=== PATIENT | female | born 1970 | race Two or more races ===

== ENCOUNTER 2020-02-03 11:08 | Outpatient (REF) | payer OTHER, SELFPAY | END 2020-02-03 11:09 | disposition home or self-care (01) | LOC: HO.LAB 11:08 | PROVIDERS: Visit Provider Internal Medicine | DX: Z20.828 Contact with and (suspected) exposure to other viral communicable diseases (principal) | CPT/HCPCS: 87635 ==

== ENCOUNTER 2020-02-06 12:09 | Emergency (ER) | payer OTHER, SELFPAY ==
[2020-02-06 12:25] VITALS: BP 208/89; PULSE 65; RESP 18; TEMP 36.6; O2SAT 99; BMI 37.8
--- NOTE | 2020-02-06 12:28 | ED_ITS ---
HPI - General Adult General Chief complaint: Headache Stated complaint: high blood pressure Time Seen by Provider: 02/06/20 12:28 Source: patient Mode of arrival: ambulatory Limitations: no limitations History of Present Illness HPI narrative: at dentist today noted to have elevated BPs 200 systolic c/o headache MD complaint: HTN and headache Onset (ago): day(s) (3) Location: head Radiation: non-radiation Severity: moderate Quality: aching, dull and constant Pain Consistency: constant Relieving factors: none Exacerbating factors: movement (bending forehead) Associated symptoms: other (nasal congestion) Treatments prior to arrival: none Related Data Previous Rx's Medication Instructions Recorded cyclobenzaprine 10 mg PO TID PRN #14 tab 02/06/20 Allergies Allergy/AdvReac Type Severity Reaction Status Date / Time No Known Allergies Allergy Verified 02/06/20 12:31 [No Known Allergies*] Review of Systems Review of Systems: Constitutional : No Fever, No Chills, No Fatigue ENT/Mouth : No sore throat, No Rhinorrhea Eyes: No Eye Pain, No Swelling, No Redness Cardiovascular : No Chest Pain, No SOB, No Dyspnea on Exertion Respiratory : No Cough, No Sputum Gastrointestinal : No Nausea, No Vomiting, No Diarrhea, No abdominal Pain Genitourinary : No Dysuria, No Urinary Frequency, No Hematuria, Musculoskeletal : No joint pain, No Myalgias, No Joint Swelling Skin : No Skin Lesions, No rash Neuro : No Weakness, No Numbness, No Dizziness, positive Headache Psych : No Anxiety/Panic, No Depression All other systems reviewed and are negative [facility] Past Medical History Medical History HTN (hypertension) HTN (hypertension) Social History Social History Alcohol intake: current Alcohol intake frequency: a few times a month Smoking Status: Never smoker Smoked in Last 30 Days: No Use of substances other than those prescribed or required for medical reasons: No Advance Directives: No Advance Directives Information Provided: No Physical Exam Vital Signs: Vital Signs: Vital Signs Temp Pulse Resp BP Pulse Ox 02/06/20 12:25 98 F 65 18 208/89 H 99 Body Mass Index 37.8 Appearance: Alert. Oriented X3. No acute distress. Eyes: Pupils equal, round and reactive to light. ENT: Pharynx normal. no sinus ttp Neck: Normal inspection. Neck supple. no meningeal signs CVS: Normal heart rate and rhythm. Pulses normal. Respiratory: No respiratory distress. Breath sounds normal. Abdomen: Soft and nontender. Skin: Skin warm and dry. Normal skin color. Normal skin turgor. Extremities: No lower extremity edema. No calf ttp Neuro: Oriented X 3. No motor deficit. No sensory deficit. Course Course Course Narrative: BP down to 160s and 150 is her baseline, at this time stable for DC feels much better Medical Decision Making MDM Narrative Medical decision making narrative: 49 yo female not toxic no AC therapy here with BPs 200/80s compliant with losartan no new changes has some nasal congestion, gradual onset, no neuro deficits, no fevers doubt SAH/[employer] DES[employer] infection, at this time will obtain basic labs and treat headache dispo per results and findings Lab Data Result diagrams: 02/06/20 12:46 02/06/20 12:46 Labs: Lab Results 02/06/20 02/06/20 Range/Units 12:46 12:46 WBC 5.1 (4.8-10.8) X10*3/uL RBC 3.93 L (4.20-5.50) X10*6/uL Hgb 11.7 L (12.0-16.0) g/dl Hct 34.8 L (37-47) % MCV 88.5 (80-98) fL MCH 29.8 (27.0-33.0) pg MCHC 33.6 (31.0-35.0) g/dl RDW 12.3 (11.0-16.0) % Plt Count 208 (160-400) X10*3/uL MPV 10.3 (9.4-12.3) fL Immature Gran % (Auto) 0.2 (0.0-0.4) % Neut % (Auto) 61.5 (45-73) % Lymph % (Auto) 30.4 (20-40) % Crosby % (Auto) 5.7 (2-11) % Eos % (Auto) 1.6 (0-4) % Baso % (Auto) 0.6 (0-2) % Lymph # (Auto) 1.5 (1.2-4.9) X10*3/uL Crosby # (Auto) 0.3 (0.1-1.2) X10*3/uL Eos # (Auto) 0.1 (0.0-0.4) X10*3/uL Baso # (Auto) 0.0 (0.0-0.2) X10*3/uL Abs Immat Gran (auto) 0.01 (0.00-0.03) X10*3/uL Absolute Neuts (auto) 3.1 (2.0-8.3) X10*3/uL Absolute Nucleated RBC 0.000 (0.0-0.012) X10*3/uL Nucleated RBC % (auto) 0.0 (0.0-0.2) /100WBC Sodium 139 (135-145) mmol/L Potassium 3.6 (3.3-5.1) mmol/l Chloride 104 (96-108) mmol/L Carbon Dioxide 26 (22-29) mmol/L Anion Gap 13 (12-20) BUN 16 (9-16) mg/dL Creatinine 0.90 (0.5-1.4) mg/dL Estim Creat Clear Calc 85.0 Estimated GFR > 60 Random Glucose 167 H (60-115) mg/dL Calcium 9.0 (8.4-10.2) mg/dL Discharge Plan Discharge Clinical Impression: Tension headache, HTN (hypertension) Patient Disposition: Home, Self-Care Instructions: Acute Headache (ED), Chronic Hypertension (ED) Additional Instructions: check your blood pressure for the next 2 days if high again please be evaluated Prescriptions: New cyclobenzaprine 10 mg tablet 10 mg PO TID PRN (Reason: muscle spasm) Qty: 14 RF: 0 Referrals: Rush Guerrero MD [Primary Care Provider] - 2 days (2 days for repeat BP check) Stand Alone Forms: Work/School Release
[2020-02-06] MEDS: Cyclobenzaprine HCl 10 MG TABLET PO (12:36)
[2020-02-06] MEDS: HYDROcodone Bit/Acetam 5/325 TABLET 1 TAB PO (12:36)
[2020-02-06 12:52] LABS: MANUAL DIFF FLAG NO
[2020-02-06 12:53] LABS: Basophils Percent Auto 0.6 % (0-2); Eosinophils Absolute Auto 0.1 X10*3/uL (0.0-0.4); Eosinophils Percent Auto 1.6 % (0-4); Hematocrit 34.8 % (37-47); Hemoglobin 11.7 g/dl (12.0-16.0); Imm Gran Abs Auto 0.01 X10*3/uL (0.00-0.03); Imm Gran Pct Auto 0.2 % (0.0-0.4); Lymphocytes Absolute Auto 1.5 X10*3/uL (1.2-4.9); Lymphocytes Percent Auto 30.4 % (20-40); Mean Corpuscular HGB Conc 33.6 g/dl (31.0-35.0); Mean Corpuscular Hemoglobin 29.8 pg (27.0-33.0); Mean Corpuscular Volume 88.5 fL (80-98); Mean Platelet Volume 10.3 fL (9.4-12.3); Monocytes Absolute Auto 0.3 X10*3/uL (0.1-1.2); Monocytes Percent Auto 5.7 % (2-11); Neutrophils Absolute Auto 3.1 X10*3/uL (2.0-8.3); Neutrophils Percent Auto 61.5 % (45-73); Platelet Count 208 X10*3/uL (160-400); Red Blood Count 3.93 X10*6/uL (4.20-5.50); Red Cell Distribution Width 12.3 % (11.0-16.0); White Blood Count 5.1 X10*3/uL (4.8-10.8)
[2020-02-06 13:19] LABS: Anion Gap 13 (12-20); Blood Urea Nitrogen 16 mg/dL (9-16); Carbon Dioxide 26 mmol/L (22-29); Chloride 104 mmol/L (96-108); Estimated Glomerular Filt Rate > 60; Glucose Random 167 mg/dL (60-115); Potassium 3.6 mmol/l (3.3-5.1); Sodium 139 mmol/L (135-145)
== END 2020-02-06 14:00 | disposition home or self-care (01) ==
PROVIDERS: Emergency Provider Emergency Medicine; PCP Internal Medicine
DX: G44.209 Tension-type headache, unspecified, not intractable (principal); I10 Essential (primary) hypertension; Z79.899 Other long term (current) drug therapy
CPT/HCPCS: 36415; 80048; 85025; 99283

== ENCOUNTER 2020-02-06 15:47 | Outpatient (REF) | payer OTHER, SELFPAY ==
[2020-02-06 16:27] LABS: MANUAL DIFF FLAG NO
[2020-02-06 16:32] LABS: Basophils Percent Auto 0.7 % (0-2); Eosinophils Absolute Auto 0.1 X10*3/uL (0.0-0.4); Eosinophils Percent Auto 1.8 % (0-4); Hematocrit 36.1 % (37-47); Hemoglobin 12.1 g/dl (12.0-16.0); Imm Gran Abs Auto 0.01 X10*3/uL (0.00-0.03); Imm Gran Pct Auto 0.2 % (0.0-0.4); Lymphocytes Absolute Auto 1.7 X10*3/uL (1.2-4.9); Lymphocytes Percent Auto 29.8 % (20-40); Mean Corpuscular HGB Conc 33.5 g/dl (31.0-35.0); Mean Corpuscular Volume 89.4 fL (80-98); Mean Platelet Volume 11.1 fL (9.4-12.3); Monocytes Absolute Auto 0.4 X10*3/uL (0.1-1.2); Monocytes Percent Auto 7.9 % (2-11); Neutrophils Absolute Auto 3.3 X10*3/uL (2.0-8.3); Neutrophils Percent Auto 59.6 % (45-73); Platelet Count 225 X10*3/uL (160-400); Red Blood Count 4.04 X10*6/uL (4.20-5.50); Red Cell Distribution Width 12.5 % (11.0-16.0); White Blood Count 5.6 X10*3/uL (4.8-10.8)
[2020-02-06 17:13] LABS: Anion Gap 11 (12-20); Blood Urea Nitrogen 13 mg/dL (9-16); C Reactive Protein 1.11 mg/dL (< or = 0.50); Calcium 8.8 mg/dL (8.4-10.2); Carbon Dioxide 29 mmol/L (22-29); Chloride 104 mmol/L (96-108); Estimated Glomerular Filt Rate > 60; Glucose Random 70 mg/dL (60-115); Sodium 140 mmol/L (135-145)
[2020-02-06 17:36] LABS: Vitamin D 25-OH Total 10.2 ng/mL (>30)
== END 2020-02-06 15:48 | disposition home or self-care (01) ==
LOC: HO.LAB 15:47
PROVIDERS: PCP Internal Medicine; Visit Provider Internal Medicine
DX: R51.9 Headache, unspecified (principal); I10 Essential (primary) hypertension; E55.9 Vitamin D deficiency, unspecified; D64.9 Anemia, unspecified
CPT/HCPCS: 36415; 80048; 82306; 85025; 86140

== ENCOUNTER 2020-02-20 10:26 | Outpatient (REF) | payer OTHER, SELFPAY ==
--- NOTE | 2020-02-20 10:32 | XR_ITS ---
EXAMINATION: XR SHOULDER, LEFT CLINICAL INFORMATION: Pain COMPARISON: None TECHNIQUE: 2 views of the left shoulder. FINDINGS: The bones and soft tissues are normal. No fracture. Glenohumeral and acromioclavicular alignment is anatomic with normal joint space. No abnormal soft tissue calcifications. XR/XR shoulder LT min 2V IMPRESSION: Normal left shoulder.
== END 2020-02-20 10:27 | disposition home or self-care (01) ==
LOC: HO.XRAY 10:26
PROVIDERS: Visit Provider Internal Medicine
DX: M25.512 Pain in left shoulder (principal)
CPT/HCPCS: 73030

== ENCOUNTER 2020-05-28 10:41 | Outpatient (REF) | payer OTHER, SELFPAY ==
[2020-05-28 13:52] LABS: MANUAL DIFF FLAG NO
[2020-05-28 13:59] LABS: Basophils Percent Auto 0.7 % (0-2); Eosinophils Absolute Auto 0.1 X10*3/uL (0.0-0.4); Eosinophils Percent Auto 1.7 % (0-4); Hematocrit 36.6 % (37-47); Hemoglobin 12.4 g/dl (12.0-16.0); Imm Gran Abs Auto 0.01 X10*3/uL (0.00-0.03); Imm Gran Pct Auto 0.2 % (0.0-0.4); Lymphocytes Absolute Auto 1.6 X10*3/uL (1.2-4.9); Lymphocytes Percent Auto 30.1 % (20-40); Mean Corpuscular HGB Conc 33.9 g/dl (31.0-35.0); Mean Corpuscular Hemoglobin 30.1 pg (27.0-33.0); Mean Corpuscular Volume 88.8 fL (80-98); Monocytes Absolute Auto 0.4 X10*3/uL (0.1-1.2); Monocytes Percent Auto 7.9 % (2-11); Neutrophils Absolute Auto 3.2 X10*3/uL (2.0-8.3); Neutrophils Percent Auto 59.4 % (45-73); Platelet Count 249 X10*3/uL (160-400); Red Blood Count 4.12 X10*6/uL (4.20-5.50); Red Cell Distribution Width 12.2 % (11.0-16.0); White Blood Count 5.4 X10*3/uL (4.8-10.8)
[2020-05-28 14:40] LABS: Anion Gap 12 (12-20); Blood Urea Nitrogen 8 mg/dL (9-16); Calcium 8.9 mg/dL (8.4-10.2); Carbon Dioxide 28 mmol/L (22-29); Chloride 106 mmol/L (96-108); Estimated Glomerular Filt Rate > 60; Glucose Fasting 116 mg/dL (60-99); Potassium 4.2 mmol/L (3.3-5.1); Sodium 142 mmol/L (135-145)
[2020-05-28 14:50] LABS: Vitamin D 25-OH Total 38.4 ng/mL (>30)
== END 2020-05-28 10:42 | disposition home or self-care (01) ==
LOC: HO.10HDL 10:41
PROVIDERS: Visit Provider Internal Medicine
DX: E55.9 Vitamin D deficiency, unspecified (principal); D64.9 Anemia, unspecified; I10 Essential (primary) hypertension
CPT/HCPCS: 36415; 80048; 82306; 85025

== ENCOUNTER 2020-06-28 12:18 | Outpatient (REF) | payer OTHER, SELFPAY ==
--- NOTE | ~2020-06-28 | MM_ITS ---
EXAMINATION: MM DIAGNOSTIC DIGITAL BREAST TOMOSYNTHESIS, BILATERAL CLINICAL INFORMATION: Right breast six-month follow up calcifications and left breast yearly screening. The lifetime risk of breast cancer based on the Tyrer-Cuzick Model is 9.2%. COMPARISON: Mammography: 12/09/2019 and studies dating back to 07/18/2013. TECHNIQUE: Digital breast tomosynthesis is performed in both the craniocaudal and mediolateral oblique views along with computer-aided detection (CAD). Synthesized 2D images are generated from the tomosynthesis. Spot magnification views of the right breast in craniocaudal and 90 degree mediolateral views performed. FINDINGS: There are scattered areas of fibroglandular density (ACR BI-RADS breast composition Category b). Skin calcifications are present within the right breast with no suspicious grouping of calcifications or abnormal dominant mass seen in either breast. No architectural distortion. Results are provided to the patient at time of visit by the technologist. MM/MM tomosynthesis diagnostic BI IMPRESSION: There are no significant changes from prior study. The right breast calcifications are seen to represent skin calcifications. ASSESSMENT: BI-RADS 2: Benign. RECOMMENDATION: Routine annual mammography screening due in 12 months. This patient's information was entered into a reminder system with a target due date for their next mammogram.
== END 2020-06-28 12:19 | disposition home or self-care (01) ==
LOC: HO.MAMMO 12:18
PROVIDERS: PCP Internal Medicine; Visit Provider Internal Medicine
DX: R92.1 Mammographic calcification found on diagnostic imaging of breast (principal)
CPT/HCPCS: 77062; 77066

== ENCOUNTER 2020-08-02 08:13 | Outpatient (REF) | payer OTHER, SELFPAY ==
[2020-08-02 08:44] LABS: COVID-19 Test Negative (Negative)
== END 2020-08-02 08:14 | disposition home or self-care (01) ==
LOC: HO.LAB 08:13
PROVIDERS: Visit Provider Internal Medicine
DX: Z20.822 Contact with and (suspected) exposure to COVID-19 (principal)
CPT/HCPCS: 36415; 87635; C9803

== ENCOUNTER 2020-12-08 07:55 | Outpatient (REF) | payer OTHER, SELFPAY ==
[2020-12-08 09:20] LABS: Estimated Average Glucose 91 mg/dL; Hemoglobin A1c % 4.8 %
[2020-12-08 09:22] LABS: Anion Gap 11 (12-20); Blood Urea Nitrogen 13 mg/dL (9-16); Calcium 9.8 mg/dL (8.4-10.2); Carbon Dioxide 27 mmol/L (22-29); Chloride 105 mmol/L (96-108); Estimated Glomerular Filt Rate 60; Glucose Random 93 mg/dL (60-115); Sodium 139 mmol/L (135-145)
== END 2020-12-08 07:56 | disposition home or self-care (01) ==
LOC: HO.LAB 07:55
PROVIDERS: PCP Internal Medicine; Visit Provider Internal Medicine
DX: I10 Essential (primary) hypertension (principal); R73.03 Prediabetes
CPT/HCPCS: 36415; 80048; 83036

== ENCOUNTER 2021-07-05 09:34 | Outpatient (REF) | payer OTHER, SELFPAY ==
--- NOTE | ~2021-07-05 | MM_ITS ---
EXAMINATION: MM SCREENING DIGITAL BREAST TOMOSYNTHESIS, BILATERAL CLINICAL INFORMATION: Screening. Asymptomatic. The lifetime risk of breast cancer based on the Tyrer-Cuzick Model is 11.1%. COMPARISON: Mammography: December 09, 2019 and studies dating back to July 18, 2013 TECHNIQUE: Digital breast tomosynthesis is performed in both the craniocaudal and mediolateral oblique views along with computer-aided detection (CAD). Synthesized 2D images are generated from the tomosynthesis. FINDINGS: There are scattered areas of fibroglandular density (ACR BI-RADS breast composition Category b). There are no significant masses, abnormal calcifications, or other abnormalities. MM/MM tomosynthesis screening BI IMPRESSION: There are no significant changes from prior study. ASSESSMENT: BI-RADS 1: Negative RECOMMENDATION: Routine annual mammography screening. This patient's information was entered into a reminder system with a target due date for their next mammogram.
== END 2021-07-05 09:35 | disposition home or self-care (01) ==
LOC: HO.MAMMO 09:34
PROVIDERS: PCP Internal Medicine; Visit Provider Internal Medicine
DX: Z12.31 Encounter for screening mammogram for malignant neoplasm of breast (principal)
CPT/HCPCS: 77063; 77067

== ENCOUNTER 2021-08-28 13:44 | Outpatient (REF) | payer OTHER, SELFPAY ==
[2021-08-28 14:54] LABS: Influenza A PCR NEGATIVE (Negative); Influenza B PCR NEGATIVE (Negative); Resp Syncy Virus RNA Qual PCR NEGATIVE (Negative); SARS COV2 PCR INHOUSE NEGATIVE (Negative)
== END 2021-08-28 13:45 | disposition home or self-care (01) ==
LOC: HO.LNP 13:44
PROVIDERS: Visit Provider Internal Medicine
DX: Z20.822 Contact with and (suspected) exposure to COVID-19 (principal); R05.9 Cough, unspecified
CPT/HCPCS: 0241U

== ENCOUNTER 2021-08-29 10:31 | Outpatient (REF) | payer OTHER, SELFPAY ==
[2021-08-29 10:55] LABS: MANUAL DIFF FLAG NO
[2021-08-29 12:06] LABS: Basophils Percent Auto 0.9 % (0-2); Eosinophils Absolute Auto 0.1 X10*3/uL (0.0-0.4); Eosinophils Percent Auto 2.8 % (0-4); Hemoglobin 8.2 g/dl (12.0-16.0); Imm Gran Abs Auto 0.01 X10*3/uL (0.00-0.03); Imm Gran Pct Auto 0.2 % (0.0-0.4); Lymphocytes Absolute Auto 1.2 X10*3/uL (1.2-4.9); Lymphocytes Percent Auto 26.4 % (20-40); Mean Corpuscular HGB Conc 30.4 g/dl (31.0-35.0); Mean Corpuscular Hemoglobin 23.9 pg (27.0-33.0); Mean Corpuscular Volume 78.7 fL (80.0-98.0); Mean Platelet Volume 11.6 fL (9.4-12.3); Monocytes Absolute Auto 0.6 X10*3/uL (0.1-1.2); Monocytes Percent Auto 12.9 % (2-11); Neutrophils Absolute Auto 2.6 x10*3/uL (2.0-8.3); Neutrophils Percent Auto 56.8 % (45-73); Platelet Count 276 X10*3/uL (160-400); Red Blood Count 3.43 X10*6/uL (4.20-5.50); Red Cell Distribution Width 13.5 % (11.0-16.0); White Blood Count 4.6 X10*3/uL (4.8-10.8)
[2021-08-29 12:36] LABS: Alanine Aminotransferase 12 U/L (0-31); Albumin Level 3.8 g/dL (3.5-5.0); Alkaline Phosphatase 124 U/L (39-117); Anion Gap 12 (12-20); Aspartate Amino Transferase 14 U/L (5-31); Bilirubin Total 0.2 mg/dL (0.0-1.0); Blood Urea Nitrogen 11 mg/dL (9-16); C Reactive Protein 1.71 mg/dL (< or = 0.50); Carbon Dioxide 24 mmol/L (22-29); Chloride 107 mmol/L (96-108); Estimated Glomerular Filt Rate > 60; Glucose Random 110 mg/dL (60-115); Potassium 4.2 mmol/L (3.3-5.1); Sodium 139 mmol/L (135-145); Total Protein 6.6 g/dL (6.5-8.0)
== END 2021-08-29 10:32 | disposition home or self-care (01) ==
LOC: HO.LAB 10:31
PROVIDERS: PCP Internal Medicine; Visit Provider Internal Medicine
DX: I10 Essential (primary) hypertension (principal); E55.9 Vitamin D deficiency, unspecified
CPT/HCPCS: 36415; 80053; 85025; 86140

== ENCOUNTER 2021-09-25 10:28 | Outpatient (REF) | payer OTHER, SELFPAY ==
[2021-09-25 15:10] LABS: CT PCR NOT DETECTED (Not Detect.); NG PCR NOT DETECTED (Not Detect.)
[2021-09-26 12:29] LABS: BV Int Neg Control Negative (Negative); BV Int Pos Control Positive (Positive)
[2021-10-03 12:46] LABS: HPV mRNA E6/E7 rflx Not Detected (Not Detected)
== END 2021-09-25 10:29 | disposition home or self-care (01) ==
LOC: HO.LAB 10:28
PROVIDERS: Visit Provider Advanced Practice Midwife
DX: Z01.419 Encounter for gynecological examination (general) (routine) without abnormal findings (principal); Z11.51 Encounter for screening for human papillomavirus (HPV); Z11.3 Encounter for screening for infections with a predominantly sexual mode of transmission; R10.2 Pelvic and perineal pain; R14.0 Abdominal distension (gaseous)
CPT/HCPCS: 87480; 87491; 87510; 87591; 87624; 87660; 88142

== ENCOUNTER 2021-10-30 14:27 | Outpatient (REF) | payer OTHER, SELFPAY ==
--- NOTE | ~2021-10-30 | US_ITS ---
EXAMINATION: US PELVIS CLINICAL INFORMATION: Pelvic pain with abdominal distention. COMPARISON: Ultrasound of the pelvis 02/02/2017. TECHNIQUE: Ultrasound of the pelvis is performed using both transabdominal and transvaginal transducers along with Doppler. Transvaginal imaging is performed due to inadequate visualization transabdominally. FINDINGS: UTERUS: The uterus is anteverted, anteflexed and measures 14.1 cm in length, 7.8 cm in AP and 5.3 cm in transverse dimension. The double wall endometrial thickness is 1.6 cm. The uterus is smooth in contour and has normal myometrial echogenicity. No visible fibroid. There are small anechoic nabothian cysts seen in the cervix. ADNEXA: There is a large cystic and solid mass in the upper pelvis extending to the upper abdomen likely originating from the right adnexa and measures at least 20 cm long. There is normal flow seen to the right ovary, however the right ovary is not distinctly visualized. The left ovary is suboptimally visualized and measures approximately 2.7 x 2.3 x 1.7 cm and volume 5.5 mL. It appears unremarkable. Previously left ovary measures 1.8 x 1.4 x 1.3 cm and volume 1.6 mL. There is a large amount of free fluid with echogenic debris within. US/US pelvic and transvaginal IMPRESSION: Large complex mass in the pelvis extending to the upper abdomen likely originating from the right ovary. The right ovary is not visualized, however there is Doppler flow seen and appears to be the right ovary. The uterus is unremarkable. There are small nabothian cysts seen in the cervix. The left ovary is visualized but not certain and appears unremarkable. There is a large amount of free fluid with echogenic debris within. Results were called to MARGO Johnson at 3:[address] of the abdomen and pelvis with contrast was advised.
[2021-10-30 14:52] LABS: Hematocrit 32.3 % (37.0-47.0); Hemoglobin 9.9 g/dl (12.0-16.0); Mean Corpuscular HGB Conc 30.7 g/dl (31.0-35.0); Mean Corpuscular Volume 78.2 fL (80.0-98.0); Platelet Count 410 X10*3/uL (160-400); Red Blood Count 4.13 X10*6/uL (4.20-5.50); Red Cell Distribution Width 14.6 % (11.0-16.0); White Blood Count 6.7 X10*3/uL (4.8-10.8)
[2021-10-30 15:33] LABS: Thyroid Stimulating Hormone 2.44 uIU/mL (0.32-4.0)
[2021-11-01 09:01] LABS: Follicle Stimulating Hormone 10.5 mIU/mL
== END 2021-10-30 14:28 | disposition home or self-care (01) ==
LOC: HO.US 14:27
PROVIDERS: PCP Internal Medicine; Visit Provider Advanced Practice Midwife
DX: R10.2 Pelvic and perineal pain (principal); N92.1 Excessive and frequent menstruation with irregular cycle; R14.0 Abdominal distension (gaseous)
CPT/HCPCS: 36415; 76830; 76856; 83001; 84443; 85027

== ENCOUNTER 2021-11-01 12:22 | Outpatient (REF) | payer OTHER, SELFPAY ==
[2021-11-06 12:12] LABS: CA-125 1975 U/mL (<35)
== END 2021-11-01 12:23 | disposition home or self-care (01) ==
LOC: HO.LAB 12:22
PROVIDERS: PCP Internal Medicine; Visit Provider Advanced Practice Midwife
DX: R19.00 Intra-abdominal and pelvic swelling, mass and lump, unspecified site (principal); N88.8 Other specified noninflammatory disorders of cervix uteri; Z71.2 Person consulting for explanation of examination or test findings
CPT/HCPCS: 36415; 86304; 99212

== ENCOUNTER 2021-11-06 14:41 | Outpatient (REF) | payer OTHER, SELFPAY ==
[2021-11-06 16:41] LABS: Carcinoembryonic Antigen < 0.50 ng/mL
== END 2021-11-06 14:42 | disposition home or self-care (01) ==
LOC: HO.LAB 14:41
PROVIDERS: PCP Internal Medicine; Visit Provider Advanced Practice Midwife
DX: R19.00 Intra-abdominal and pelvic swelling, mass and lump, unspecified site (principal)
CPT/HCPCS: 36415; 82378

== ENCOUNTER 2021-11-07 13:10 | Outpatient (REF) | payer OTHER, SELFPAY ==
[2021-11-07 14:26] LABS: Blood Urea Nitrogen 12 mg/dL (9-16); Estimated Glomerular Filt Rate 57
== END 2021-11-07 13:11 | disposition home or self-care (01) ==
LOC: HO.LAB 13:10
PROVIDERS: PCP Internal Medicine; Visit Provider Advanced Practice Midwife
DX: O26.899 Other specified pregnancy related conditions, unspecified trimester (principal); R51.9 Headache, unspecified
CPT/HCPCS: 36415; 82565; 84520

== ENCOUNTER 2021-11-08 05:22 | Outpatient (REF) | payer OTHER, SELFPAY ==
--- NOTE | ~2021-11-08 | CT_ITS ---
EXAMINATION: CT ABDOMEN AND PELVIS WITH CONTRAST CLINICAL INFORMATION: Intra-abdominal and pelvic swelling, mass, lung COMPARISON: None TECHNIQUE: Multidetector volumetric images were obtained from the superior aspect of the liver through the pubic symphysis following administration 85 mL of Omnipaque 350 intravenous contrast. Sagittal and coronal reformatted images were obtained on the technologist's workstation. Oral contrast: No This CT examination was performed using dose optimization techniques as appropriate, variously including the following: *Automated exposure control *Adjustment of mA and/or kV according to patient size (this includes techniques or standardized protocols for targeted exams where dose is matched to indication/reason for exam; i.e. extremities or head) *Use of iterative reconstruction technique DLP: 603 mGy-cm FINDINGS: LUNG BASES: Epicardial soft tissue nodules the largest measuring 1.3 x 1.3 cm in image 6/94. Normal heart size. LIVER, GALLBLADDER, AND BILIARY TREE: The liver is normal in size, shape, and attenuation. No focal hepatic lesion or biliary ductal dilatation is present. The gallbladder is unremarkable with no evidence of radiopaque gallstones, gallbladder wall thickening, or obvious pericholecystic inflammatory changes. PANCREAS: Unremarkable. SPLEEN: Unremarkable. ADRENAL GLANDS: Unremarkable. KIDNEYS AND URETERS: The kidneys are normal in size, shape, and attenuation. No hydronephrosis, hydroureter, or calculi seen. No perinephric stranding. BLADDER: Unremarkable. GASTROINTESTINAL TRACT: The small and large bowel are unremarkable. The appendix is unremarkable. ABDOMINAL WALL: No significant hernia is appreciated. LYMPH NODES: There is retroperitoneal lymphadenopathy below the level of the renal veins. The largest is a 3.2 x 1.9 cm aortocaval lymph node in image 35/94. Inferiorly there is a 1.9 x 1.6 cm aortocaval lymph node in image 44. There is right external iliac lymphadenopathy in image 73 measuring 1.8 x 1.6 cm. There is left pelvic sidewall lymphadenopathy measuring 1.6 x 1.2 cm. VASCULAR: Unremarkable. PELVIC VISCERA: There is a complex cystic and solid right ovarian mass, contiguous with the right ovarian vessels measuring 20 x 13 cm transaxial by 15 cm craniocaudal. Left ovary possibly seen in image 65/94, normal in size. There is a moderate volume of ascites with peritoneal and omental soft tissue nodules consistent with peritoneal carcinomatosis. The largest confluent area of abnormal soft tissue is in the left lateral abdomen image 43/94 measuring 8.1 x 3.6 cm. Dependent soft tissue nodularity in the pelvic cul-de-sac, for example measuring 3.3 and 3.0 cm in greatest dimension on image 73/94 are likely peritoneal soft tissue implants as well. OSSEOUS STRUCTURES: Lower lumbar facet arthropathy. No acute or suspicious osseous abnormality. CT/CT abdomen pelvis w con IMPRESSION: Findings most consistent with metastatic ovarian cancer including a complex cystic and solid 20 cm right ovarian mass, moderate volume of ascites, peritoneal carcinomatosis, and metastatic lymphadenopathy. Recommend referral to gynecologic oncology. The report will be called to the ordering clinician by a [facility] Manager.
[2021-11-08] MEDS: iohexoL 350 MG/ML 100 ML INFUS..BTL 85 ML IV (08:05)
[2021-11-08] MEDS: Barium Sulfate Oral (Vanilla) 450 ML ORAL.SUSP 900 ML PO (08:07)
== END 2021-11-08 05:23 | disposition home or self-care (01) ==
LOC: HO.CT 05:22
PROVIDERS: Visit Provider Advanced Practice Midwife
DX: R19.00 Intra-abdominal and pelvic swelling, mass and lump, unspecified site (principal)
CPT/HCPCS: 74177; Q9967

== ENCOUNTER 2022-01-17 06:45 | Outpatient (REF) | payer OTHER, SELFPAY ==
[2022-01-17 06:56] LABS: MANUAL DIFF FLAG NO
[2022-01-17 07:53] LABS: Basophils Percent Auto 0.7 % (0-2); Eosinophils Absolute Auto 0.1 X10*3/uL (0.0-0.4); Eosinophils Percent Auto 2.4 % (0-4); Hematocrit 29.9 % (37.0-47.0); Hemoglobin 9.2 g/dl (12.0-16.0); Imm Gran Abs Auto 0.01 X10*3/uL (0.00-0.03); Imm Gran Pct Auto 0.2 % (0.0-0.4); Lymphocytes Absolute Auto 1.6 X10*3/uL (1.2-4.9); Lymphocytes Percent Auto 37.5 % (20-40); Mean Corpuscular HGB Conc 30.8 g/dl (31.0-35.0); Mean Corpuscular Hemoglobin 24.7 pg (27.0-33.0); Mean Corpuscular Volume 80.2 fL (80.0-98.0); Monocytes Absolute Auto 0.2 X10*3/uL (0.1-1.2); Monocytes Percent Auto 3.8 % (2-11); Neutrophils Absolute Auto 2.3 x10*3/uL (2.0-8.3); Neutrophils Percent Auto 55.4 % (45-73); Platelet Count 156 X10*3/uL (160-400); Red Blood Count 3.73 X10*6/uL (4.20-5.50); Red Cell Distribution Width 17.6 % (11.0-16.0); White Blood Count 4.2 X10*3/uL (4.8-10.8)
[2022-01-17 08:06] LABS: Anion Gap 15 (12-20); Blood Urea Nitrogen 19 mg/dL (9-16); Calcium 9.9 mg/dL (8.4-10.2); Carbon Dioxide 26 mmol/L (22-29); Chloride 101 mmol/L (96-108); Estimated Glomerular Filt Rate > 60; Glucose Random 101 mg/dL (60-115); Iron 43 mcg/dL (30-160); Percent Iron Saturation 12 % (15-50); Potassium 4.4 mmol/L (3.3-5.1); Sodium 138 mmol/L (135-145); Total Iron Binding Capacity 358 mcg/dL (228-428); Unsaturated Iron Binding 315 ug/dL
== END 2022-01-17 06:46 | disposition home or self-care (01) ==
LOC: HO.LAB 06:45
PROVIDERS: PCP Internal Medicine; Visit Provider Internal Medicine
DX: I10 Essential (primary) hypertension (principal); D64.9 Anemia, unspecified
CPT/HCPCS: 36415; 80048; 83540; 85025

== ENCOUNTER 2022-07-10 12:25 | Outpatient (REF) | payer OTHER, SELFPAY ==
--- NOTE | ~2022-07-10 | MM_ITS ---
EXAMINATION: MM SCREENING DIGITAL BREAST TOMOSYNTHESIS, BILATERAL CLINICAL INFORMATION: Screening. Asymptomatic. The lifetime risk of breast cancer based on the Tyrer-Cuzick Model is 10%. COMPARISON: Mammography: July 05, 2021 and studies dating back to February 25, 2017 TECHNIQUE: Digital breast tomosynthesis is performed in both the craniocaudal and mediolateral oblique views along with computer-aided detection (CAD). Synthesized 2D images are generated from the tomosynthesis. FINDINGS: There are scattered areas of fibroglandular density (ACR BI-RADS breast composition Category b). There are no significant masses, abnormal calcifications, or other abnormalities. MM/MM tomosynthesis screening BI IMPRESSION: No significant changes from prior exam. ASSESSMENT: BI-RADS 1: Negative RECOMMENDATION: Routine annual mammography screening. This patient's information was entered into a reminder system with a target due date for their next mammogram.
== END 2022-07-10 12:26 | disposition home or self-care (01) ==
LOC: HO.MAMMO 12:25
PROVIDERS: PCP Internal Medicine; Visit Provider Internal Medicine
DX: Z12.31 Encounter for screening mammogram for malignant neoplasm of breast (principal)
CPT/HCPCS: 77063; 77067

== ENCOUNTER 2023-04-28 16:06 | Outpatient (REF) | payer OTHER, SELFPAY ==
[2023-04-28 16:19] LABS: MANUAL DIFF FLAG NO
[2023-04-28 17:35] LABS: Basophils Percent Auto 0.6 % (0-2); Eosinophils Absolute Auto 0.1 X10*3/uL (0.0-0.4); Hematocrit 34.8 % (37.0-47.0); Hemoglobin 11.6 g/dl (12.0-16.0); Imm Gran Abs Auto 0.01 X10*3/uL (0.00-0.03); Imm Gran Pct Auto 0.2 % (0.0-0.4); Lymphocytes Absolute Auto 1.5 X10*3/uL (1.2-4.9); Lymphocytes Percent Auto 29.4 % (20-40); Mean Corpuscular HGB Conc 33.3 g/dl (31.0-35.0); Mean Corpuscular Hemoglobin 31.5 pg (27.0-33.0); Mean Corpuscular Volume 94.6 fL (80.0-98.0); Mean Platelet Volume 10.5 fL (9.4-12.3); Monocytes Absolute Auto 0.4 X10*3/uL (0.1-1.2); Monocytes Percent Auto 7.3 % (2-11); Neutrophils Percent Auto 61.5 % (45-73); Platelet Count 209 X10*3/uL (160-400); Red Blood Count 3.68 X10*6/uL (4.20-5.50); Red Cell Distribution Width 11.7 % (11.0-16.0); White Blood Count 4.9 X10*3/uL (4.8-10.8)
[2023-04-28 18:25] LABS: Alanine Aminotransferase 14 U/L (0-31); Albumin Level 4.2 g/dL (3.5-5.0); Alkaline Phosphatase 99 U/L (39-117); Anion Gap 13 (12-20); Aspartate Amino Transferase 15 U/L (5-31); Bilirubin Total 0.5 mg/dL (0.0-1.0); Blood Urea Nitrogen 17 mg/dL (9-16); Calcium 9.5 mg/dL (8.4-10.2); Carbon Dioxide 27 mmol/L (22-29); Chloride 107 mmol/L (96-108); Cholesterol 186 mg/dL (<200); Estimated Glomerular Filt Rate > 60; Glucose Random 97 mg/dL (60-115); Potassium 4.2 mmol/L (3.3-5.1); Sodium 143 mmol/L (135-145); Total Protein 7.3 g/dL (6.5-8.0)
[2023-04-28 18:39] LABS: Vitamin D 25-OH Total 11.2 ng/mL (>30)
== END 2023-04-28 16:07 | disposition home or self-care (01) ==
LOC: HO.LAB 16:06
PROVIDERS: PCP Internal Medicine; Visit Provider Internal Medicine
DX: I12.9 Hypertensive chronic kidney disease with stage 1 through stage 4 chronic kidney disease, or unspecified chronic kidney disease (principal); N18.9 Chronic kidney disease, unspecified; E55.9 Vitamin D deficiency, unspecified; D64.9 Anemia, unspecified; Z98.890 Other specified postprocedural states
CPT/HCPCS: 36415; 80053; 82306; 82465; 85025

== ENCOUNTER 2023-08-07 08:21 | Outpatient (REF) | payer OTHER, SELFPAY ==
--- NOTE | ~2023-08-07 | MM_ITS ---
EXAMINATION: MM SCREENING DIGITAL BREAST TOMOSYNTHESIS, BILATERAL CLINICAL INFORMATION: Screening. Asymptomatic. COMPARISON: Mammography: This study is compared with prior exams dating back to 2019. TECHNIQUE: Digital breast tomosynthesis is performed in both the craniocaudal and mediolateral oblique views along with computer-aided detection (CAD). Synthesized 2D images are generated from the tomosynthesis. FINDINGS: There are scattered areas of fibroglandular density (ACR BI-RADS breast composition Category b). There are no significant masses, abnormal calcifications, or other abnormalities. Few, bilateral benign calcifications are present. MM/MM tomosynthesis screening BI IMPRESSION: No mammographic evidence of malignancy. ASSESSMENT: BI-RADS BI-RADS 2 - Benign Findings RECOMMENDATION: Routine annual mammography screening. 1 year F/U This examination should not preclude the clinical evaluation of a suspicious palpable abnormality. This patient's information was entered into a reminder system with a target due date for their next mammogram.
== END 2023-08-07 08:22 | disposition home or self-care (01) ==
LOC: HO.MAMMO 08:21
PROVIDERS: PCP Internal Medicine; Visit Provider Internal Medicine
DX: Z12.31 Encounter for screening mammogram for malignant neoplasm of breast (principal)
CPT/HCPCS: 77063; 77067

== ENCOUNTER → 2023-08-07 08:45 | Outpatient (BNV) | payer OTHER, SELFPAY | PROVIDERS: PCP Internal Medicine; Visit Provider Radiology Diagnostic Radiology | DX: Z12.31 Encounter for screening mammogram for malignant neoplasm of breast (principal) | CPT/HCPCS: 77063; 77067 ==

== ENCOUNTER 2024-02-05 11:30 | Outpatient (REF) | payer OTHER, SELFPAY ==
[2024-02-05 11:49] LABS: MANUAL DIFF FLAG NO
[2024-02-05 12:23] LABS: Appearance Urine Clear; Color Urine Yellow; Glucose Urine UA Negative (Negative); Leukocyte Esterase Urine Small (1+) (Negative); Nitrite Urine Negative (Negative); PH 5.5 (5.0-9.0); UMIC TRIGGER UA YES; Urine Blood Negative (Negative); Urine Ketones Negative (Negative); Urine Protein Negative (Neg-Trace)
[2024-02-05 12:29] LABS: Basophils Percent Auto 0.8 % (0-2); Eosinophils Absolute Auto 0.1 X10*3/uL (0.0-0.4); Eosinophils Percent Auto 1.5 % (0-4); Hematocrit 33.9 % (37.0-47.0); Hemoglobin 11.6 g/dl (12.0-16.0); Imm Gran Abs Auto 0.01 X10*3/uL (0.00-0.03); Imm Gran Pct Auto 0.2 % (0.0-0.4); Lymphocytes Absolute Auto 1.5 X10*3/uL (1.2-4.9); Lymphocytes Percent Auto 31.6 % (20-40); Mean Corpuscular HGB Conc 34.2 g/dl (31.0-35.0); Mean Corpuscular Hemoglobin 32.1 pg (27.0-33.0); Mean Corpuscular Volume 93.9 fL (80.0-98.0); Mean Platelet Volume 10.2 fL (9.4-12.3); Monocytes Absolute Auto 0.4 X10*3/uL (0.1-1.2); Monocytes Percent Auto 9.1 % (2-11); Neutrophils Absolute Auto 2.7 x10*3/uL (2.0-8.3); Neutrophils Percent Auto 56.8 % (45-73); Platelet Count 159 X10*3/uL (160-400); Red Blood Count 3.61 X10*6/uL (4.20-5.50); Red Cell Distribution Width 12.8 % (11.0-16.0); White Blood Count 4.8 X10*3/uL (4.8-10.8)
[2024-02-05 12:34] LABS: Bacteria Urine None Seen (None Seen); Hyaline Casts Urine 0-2 /LPF (0-2); RBC Urine 0-2 /HPF (0-2); WBC Urine 0-5 /HPF (0-5)
[2024-02-05 13:29] LABS: Parathyroid Hormone Intact 156.3 pg/mL (8.7-77.1)
[2024-02-05 13:30] LABS: Creatinine Urine 203.59 mg/dL; Microalbum/Creatinine Ratio Ur 17.1 ug/mg cr (<30); Protein/Creatinine Ratio, Ur 0.05 (<0.2); Total Protein Urine Random 10 mg/dL (<12)
[2024-02-05 13:31] LABS: Anion Gap 14 (12-20); Blood Urea Nitrogen 24 mg/dL (9-16); Calcium 9.6 mg/dL (8.4-10.2); Carbon Dioxide 28 mmol/L (22-29); Chloride 102 mmol/L (96-108); Estimated Glomerular Filt Rate 46; Glucose Random 107 mg/dL (60-115); Iron 86 mcg/dL (30-160); Magnesium 2.1 mg/dL (1.6-2.6); Percent Iron Saturation 29 % (15-50); Phosphorus 3.3 mg/dL (2.7-4.5); Potassium 4.3 mmol/L (3.3-5.1); Sodium 140 mmol/L (135-145); Total Iron Binding Capacity 295 mcg/dL (228-428); Unsaturated Iron Binding 209 ug/dL; Uric Acid 9.6 mg/dL (2.4-5.7)
[2024-02-05 13:49] LABS: Ferritin 720 ng/mL (10-250); Vitamin D 25-OH Total 33.7 ng/mL (>30)
[2024-02-10 09:12] LABS: eGFR (Cystatin C) 44 (L)
[2024-02-10 09:13] LABS: Cystatin C 1.47 (H)
== END 2024-02-05 11:31 | disposition home or self-care (01) ==
LOC: HO.LAB 11:30
PROVIDERS: PCP Internal Medicine; Visit Provider Internal Medicine
DX: N18.31 Chronic kidney disease, stage 3a (principal)
CPT/HCPCS: 36415; 80048; 81001; 82043; 82306; 82570; 82610; 82728; 83540; 83735; 83970; 84100; 84156; 84550; 85025

== ENCOUNTER 2024-08-25 11:39 | Outpatient (REF) | payer OTHER, SELFPAY ==
--- OUTSIDE RECORDS SUMMARY | 2024-08-25 13:11 | XMS_ITS | Clinical Summary ---
Author Organization [facility] Address [address] [place] [address] Phone Care Team Providers Care Hand Molder Meat Name Role Phone Rush Guerrero MD Primary Care Provider [phone] Allergies No known active allergies Medications amLODIPine (NORVASC) 10 MG tablet Take 10 mg by mouth 09/07/2023 Active prochlorperazin e (COMPAZINE) 10 MG tablet Take 10 mg by mouth if needed for nausea 05/28/2023 Active spironolactone (ALDACTONE) 25 MG tablet Take 25 mg by mouth in the morning and 25 mg in the evening. 11/16/2023 Active carvedilol (COREG) 25 MG tablet Take 1 tablet (25 mg total) by mouth in the morning and 1 tablet (25 mg total) in the evening. Take with meals. 180 tablet 3 12/17/2023 5 Active hydroCHLOROthia zide (HYDRODIURIL) 50 MG tablet Take 1 tablet (50 mg total) by mouth in the morning and 1 tablet (50 mg total) in the evening. 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 05/09/2024 Carcinomatosis 05/09/2024 Hypertensive disorder 05/09/2024 Malignant neoplasm of unspecified ovary 05/09/19 Nausea 05/09/2024 Severe obesity 05/09/2024 Social History Tobacco Use Types Packs/Day Years Used Date Smoking Tobacco: Never Smokeless Tobacco: Never Tobacco Cessation:Counseling Given: Not Answered Alcohol Use Standard Drinks/Week Comments Yes 0 (1 standard drink = 0.6 oz pur e alcohol) socially 1-2 times per year Comments Unknown Sex and Gender Information Value Date Recorded Sex Assigned at Not on file Legal Sex Female 7:47 PM EDT Gender Identity Not on file Sexual Orientation Not on file Last Filed Vital Signs Vital Sign Reading Time Taken Comments Blood Pressure 137/75 05/19/2024 1:53 PM EST Pulse 60 05/19/2024 1:53 PM EST Temperature - - Respiratory Rate - - Oxygen Saturation 98% 05/19/2024 1:53 PM EST Inhaled Oxygen Concentration - - Weight 98.4 kg (217 lb) 05/19/2024 1:53 PM EST Height 160 cm (5' 3 ) 05/19/2024 1:53 PM EST Body Mass Index 38.44 05/19/2024 1:53 PM EST Plan of Treatment Upcoming Encounters Date Type Department Care Team (Late st Contact Info) Description 11/17/2024 1:00 PM EDT Office Visit [facility] [address] [place] [address] Alex Dickinson MD [address] [facility] [address] [place] [address] Health Maintenance Due Date Last Done Comments Breast Cancer Screening 1968 Hepatitis B Vaccine (1 of 3 - 19+ 3-dose series) 06/15 Pneumococcal Vaccine: 50+ Years (1 of 2 - PCV) 988 Colorectal Cancer Screening: Annual FOBT 2017 Colorectal Cancer Screening: Colonoscopy 2017 Colorectal Cancer Screening: Sigmoidoscopy 2017 Influenza Vaccine (Season Ended) 2024 Insurance [facility] Medicaid [facility] Medicaid Care Teams Hand Molder Meat Relationship Specialty Start Date End Date Rush Guerrero MD [address] [place] [address] [id number] [place], [place] PCP - General Internal Medicine 12/10/23
--- OUTSIDE RECORDS SUMMARY | 2024-08-25 13:11 | XMS_ITS | Encounter Summary ---
Author Organization [facility] Address [address] [place] [address] [place] [address] Care Team Providers Care Chiropractor Assistant Name Role Phone Unavailable Primary Care Provider Unavailabl e Encounter Details Date Type Department Care Team (Latest Contact Info) Description 06/30/2018 Abstract [facility] CONVERSIONS Dental, Provider, DDS Social History Tobacco Use Types Packs/Day Years Used Date Smoking Tobacco: Never Assessed Comments Unknown Sex and Gender Information Value Date Recorded Sex Assigned at Female 02/17/2022 10:34 AM EDT Legal Sex Female 10:34 AM EDT Gender Identity Not on file Sexual Orientation Not on file documented as of this encounter Plan of Treatment Not on file documented as of this encounter Visit Diagnoses Not on filedocumented in this encounter
--- OUTSIDE RECORDS SUMMARY | 2024-08-25 13:11 | XMS_ITS | Clinical Summary ---
Author Organization [facility] Address [address] [place] [address] [address] [place] [address] Care Team Providers Care Marketing Manager Name Role Phone Unavailable Primary Care Provider Unavailabl e Social History Tobacco Use Types Packs/Day Years Used Date Smoking Tobacco: Never Assessed Comments Unknown Sex and Gender Information Value Date Recorded Sex Assigned at Female 02/17/2022 10:34 AM EDT Legal Sex Female 10:34 AM EDT Gender Identity Not on file Sexual Orientation Not on file Plan of Treatment Health Maintenance Due Date Last Done Comments CT Colonography 1968 Colonoscopy 1968 Colorectal Cancer Screening 1968 Depression Screening 1968 FIT DNA/Cologuard 1968 FIT 1968 FOBT 1968 Sigmoidoscopy 1968 Alcohol/Substance Use Screening 1980 Tobacco Screening 1980 DTaP/Tdap/Td Vaccines (1 - Tdap) 1987 Hepatitis B Vaccines (1 of 3 - 19+ 3-dose series) 1987 Pap Smear 1989 Cervical Cancer Screening 1998 HPV/Cotest 1998 Mammogram 2008 Pneumococcal Vaccine: 50+ Ye ars (1 of 1 - PCV) 2018 Zoster Vaccines (1 of 2) 2018 COVID-19 Vaccine ( - 2023-2 5 season) 2023 Influenza Vaccine (#1) 2023 RSV Patients and Pa tients Aged 60 years or older (1 - 1-dose 75+ series) 2043 HIB Vaccines Aged Out No longer eligi ble based on patient's age to complete this topic HPV Vaccines Aged Out No longer eligi ble based on patient's age to complete this topic Hepatitis A Vaccines Aged Out No long er eligible based on patient's age to complete this topic IPV Vaccines Aged Out No longer eligi ble based on patient's age to complete this topic Meningococcal Vaccine Aged Out No khloe bernie eligible based on patient's age to complete this topic Pneumococcal Vaccine: Pediat rics (0 to 5 Years) and At-Risk Patients (6 to 49) Years) Aged Out No longer eligible b ased on patient's age to complete this topic RSV under 20 months Aged Out No longe r eligible based on patient's age to complete this topic Rotavirus Vaccines Aged Out No longer eligible based on patient's age to complete this topic
== END 2024-08-25 11:40 | disposition home or self-care (01) ==
LOC: HO.MAMMO 11:39
PROVIDERS: PCP Internal Medicine; Visit Provider Internal Medicine
DX: Z12.31 Encounter for screening mammogram for malignant neoplasm of breast (principal)
CPT/HCPCS: 77063; 77067

== ENCOUNTER → 2024-08-25 12:15 | Outpatient (BNV) | payer OTHER, SELFPAY | PROVIDERS: PCP Internal Medicine; Visit Provider Internal Medicine | DX: Z12.31 Encounter for screening mammogram for malignant neoplasm of breast (principal) | CPT/HCPCS: 77063; 77067 ==

== ENCOUNTER 2024-09-06 08:47 | Outpatient (AMB) | payer OTHER, SELFPAY ==
--- NOTE | 2024-09-06 08:49 | A.OFFPC_ITS ---
Vital Signs 09/06/24 08:55 Height 5 ft 3 in Weight 98.43 kg BMI 38.4 BP 124/72 Respiration 14 Pulse 56 Pulse Source Palpation Temp 97.4 F Temp Source Temporal Artery Scan Intake Visit Reasons: Routine Safety Director Required: No Accompanied by: Self / Same As Patient Allergies No Known Allergies [No Known Allergies*] Allergy (Verified 09/06/24 08:54) Medication List - Last Reconciled 09/07/24 by RAMIREZ Pfeiffer carvedilol 25 mg PO BID gabapentin 300 mg PO BEDTIME hydrochlorothiazide mg PO spironolactone 25 mg PO BID HPI HPI Comments History of Present Illness Details 54 year old female with history of htn, hx ovarian cancer presents to the office for management of chronic conditions and to establish care. Ovarian cancer- Following with Dr. 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 Mets to paratracheal and hilar lymphadenopathy w/p total hysterectomy 03/2022 Carbo/doxil/avastin?06/17/23-10/15/23. Avastin maintenance 10/29/23-present On dx, CA125 1974 with slow rise, concerning for progressive disease Following with cardiology for monitoring of renal function and htn given current therapies HTN- Following with Dr. German in cardiology. Compliant with spironolactone, coreg, and hctz. No longer on losartan. BP controlled at 124/72 today. CKD stage 3- secondary to chemo. Following with Dr. Fontaine at [facility]. Last GFR 48 Hyperlipidemia - Last total cholesterol at [facility] was 178, LDL 114, HDL 29. Not on statin. Following with cardiology She is concerned about stabbing and burning pain in the bilateral feeting, particularly with walking. She also feels a lump in the plantar aspect of the L foot. She has purchased insoles and has been stretching and has been drinking plenty of water. Reports she can barely walk. She is also requesting referral to podiatry for management of large callouses on the bilateral feet that are pa inful. ROS: General: No fevers, malaise, unintentional weight loss HEENT: No blurred vision, diplopia. No sore throat, nasal congestion, rhinorrhea, sinus pain, ear pain Cardiovascular: No chest pain, palpitations, or leg edema Respiratory: No shortness of breath, wheezing, cough Neuro: No headaches, weakness. See hpi Skin: see hpi Exam: Constitutional - Awake and Alert, No apparent distress Eyes - PERRL Cardiovascular - S1S2, RRR, No edema Respiratory - Normal lung expansion, Normal respiratory effort, No respiratory distress, CTA bilaterally Extremities - no calf tenderness bilaterally, no swelling. L foot- soft, tender mass of the plantar fascia about the size of a golf ball that is non-mobile and without overlying erythema or warmth. No skin breaks Skin - Warm/Dry. 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 CKD (chronic kidney disease) stage 3, GFR 30-59 ml/min HTN (hypertension) Surgical History (Updated 09/06/24 @ 09:03 by RAMIREZ Pfeiffer) S/P total hysterectomy History of colonoscopy (~05/23/19) Hx of dilation and curettage Hx of section Hx of tubal ligation Social History Alcohol intake: current Alcohol intake frequency: a few times a month Patient Tobacco Use Status: Never used Tobacco Sexual orientation: Straight/Heterosexual Gender identity: Female Physical exam (Primary Care) Vital Signs: Last Vital Signs Temp 97.4 F 09/06/24 08:55 Pulse 56 09/06/24 08:55 Resp 14 09/06/24 08:55 BP 124/72 09/06/24 08:55 BMI result Body Mass Index 38.4 Tobacco/Smoking Status: Tobacco use Status Patient Tobacco Use Status Never used Tobacco 09/06/24 08:52 Coding Level of Care Code New Pt Level 4 (09940) Complex EM visit Add On G2211 Diagnoses 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 Souza [facility] DIRECTOR OF SURGERY/ONC Code(s): C56.9 - Malignant neoplasm of unspecified ovary; C77.8 - Secondary and unspecified malignant neoplasm of lymph nodes of multiple regions Category: Medical Plan: Reviewed Dr. Souza's most recent note. Continue following with DIRECTOR OF SURGERY/ONC. Per oncology notes, disease is progressive with metastasis to the hilar and paratracheal lymph nodes. She will remain on Avastin therapy with close monitoring of renal function and hypertension by Nephrology and Cardiology. (2) HTN (hypertension): Code(s): I10 - Essential (primary) hypertension Category: Medical Plan: Controlled with blood pressure 124/72. Continue carvedilol 25 mg twice daily, hydrochlorothiazide 25 mg daily and spironolactone 25 mg twice daily. Reviewed most recent cardiology note from Dr. German. Continue following as scheduled. (3) Foot mass: Comment: plantar surface Code(s): R22.40 - Localized swelling, mass and lump, unspecified lower limb Category: Medical Plan: Question neuroma vs fibroma or other soft tissues mass. US Left foot ordered. Referral to podiatry placed. Advised to bring disc with images to appt. (4) CKD (chronic kidney disease) stage 3, GFR 30-59 ml/min: Code(s): N18.30 - Chronic kidney disease, stage 3 unspecified Category: Medical Plan: Stable. Nephrology notes requested. Will check BMP today. Avoid nephrotoxins (5) Chemotherapy-induced peripheral neuropathy: Code(s): G62.0 - Drug-induced polyneuropathy; T45.1X5A - Adverse effect of antineoplastic and immunosuppressive drugs, initial encounter Category: Medical Plan: likely secondary to avastin use. Continue therapy as advised by tack welder/onc. Trial gabapentin 300mg nightly. Discussed that higher dose may be needed but will trial lower dose first. Plan Follow up in 6 months, sooner if needed. Labs completed prior to visit. Ultrasound of the left foot and x-ray of the bilateral feet ordered. Referral placed to Podiatry. Orders: Orders Lipid Panel Today E78.5 - Hyperlipidemia, unspecified, I10 - Essential (primary) hypertension, N18.30 - Chronic kidney disease, stage 3 unspecified, Z13.1 - Encounter for screening for diabetes mellitus TSH reflex Free T4 Today E78.5 - Hyperlipidemia, unspecified, I10 - Essential (primary) hypertension, N18.30 - Chronic kidney disease, stage 3 unspecified, Z13.1 - Encounter for screening for diabetes mellitus XR Foot Ottoniel 2V Today M79.671 - Pain in right foot, M79.672 - Pain in left foot US Extremity Nonvas Limited LT Today R22.40 - Localized swelling, mass and lump, unspecified lower limb Basic Metabolic Panel Today E78.5 - Hyperlipidemia, unspecified, I10 - Essential (primary) hypertension, N18.30 - Chronic kidney disease, stage 3 unspecified, Z13.1 - Encounter for screening for diabetes mellitus Complete Blood Count Auto Diff Today E78.5 - Hyperlipidemia, unspecified, I10 - Essential (primary) hypertension, N18.30 - Chronic kidney disease, stage 3 unspecified, Z13.1 - Encounter for screening for diabetes mellitus Hemoglobin A1c Today E78.5 - Hyperlipidemia, unspecified, I10 - Essential (primary) hypertension, N18.30 - Chronic kidney disease, stage 3 unspecified, Z13.1 - Encounter for screening for diabetes mellitus Liver Panel Today E78.5 - Hyperlipidemia, unspecified, I10 - Essential (primary) hypertension, N18.30 - Chronic kidney disease, stage 3 unspecified, Z13.1 - Encounter for screening for diabetes mellitus Referrals Podiatry Referral L84 - Corns and callosities, R22.40 - Localized swelling, mass and lump, unspecified lower limb Medications: New gabapentin 300 mg PO BEDTIME 90 caps 1RF
[2024-09-06 08:55] VITALS: BP 124/72; PULSE 56; RESP 14; TEMP 36.3; BMI 38.4
--- OUTSIDE RECORDS SUMMARY | 2024-09-06 09:03 | XMS_ITS | Encounter Summary ---
Author Organization [facility] Address [address] [place] [address] [place] [address] Care Team Providers Care Medical Case Worker Name Role Phone Unavailable Primary Care Provider Unavailabl e Encounter Details Date Type Department Care Team (Latest Contact Info) Description 06/30/[address] [facility] CONVERSIONS Dental, Provider, DDS Social History [...]
--- OUTSIDE RECORDS SUMMARY | 2024-09-06 09:03 | XMS_ITS | Clinical Summary ---
Author Organization [facility] Address [address] [place] [address] Phone Care Team Providers Care Helmet Hat Puncher Name Role Phone Rush Guerrero MD Primary Care Provider [phone] Allergies No known active allergies Medications amLODIPine [...] Visit [facility] [address] [place] [address] Alex Dickinson MD [address] [facility] [address] [place] [address] Health Maintenance Due Date Last Done Comments Breast Cancer Screening 1970 Hepatitis B Vaccine (1 of 3 - 19+ 3-dose series) 06/15 Pneumococcal Vaccine: 50+ Years (1 of 2 - PCV) 988 Colorectal Cancer Screening: Annual FOBT 2017 Colorectal Cancer Screening: Colonoscopy 2017 Colorectal Cancer Screening: Sigmoidoscopy 2017 Influenza Vaccine (Season Ended) 2024 Insurance [facility] Medicaid [facility] Medicaid Care Teams Helmet Hat Puncher Relationship Specialty Start Date End Date Rush Guerrero MD [address] [place] [address] [address] [place], [place] PCP - General Internal Medicine 12/10/23
--- OUTSIDE RECORDS SUMMARY | 2024-09-06 09:03 | XMS_ITS | Clinical Summary ---
Author Organization [facility] Address [address] [place] [address] 7 [place] [address] Care Team Providers Care Remelt Worker Name Role Phone Unavailable Primary Care [...] patient's age to complete this topic Meningococcal B Vaccine Aged Out No l onger eligible based on patient's age to complete [...]
== END 2024-09-06 09:22 | disposition home or self-care (01) ==
LOC: HO.HMCHD 08:48
PROVIDERS: PCP Internal Medicine; Visit Provider Physician Assistant
DX: C56.9 Malignant neoplasm of unspecified ovary (principal); C77.8 Secondary and unspecified malignant neoplasm of lymph nodes of multiple regions; I10 Essential (primary) hypertension; R22.40 Localized swelling, mass and lump, unspecified lower limb; N18.30 Chronic kidney disease, stage 3 unspecified; G62.0 Drug-induced polyneuropathy; T45.1X5A Adverse effect of antineoplastic and immunosuppressive drugs, initial encounter

== ENCOUNTER → 2024-09-06 08:47 | Outpatient (BNVA) | payer OTHER, SELFPAY | PROVIDERS: PCP Internal Medicine; Visit Provider Physician Assistant | DX: I12.9 Hypertensive chronic kidney disease with stage 1 through stage 4 chronic kidney disease, or unspecified chronic kidney disease (principal); N18.30 Chronic kidney disease, stage 3 unspecified; C56.9 Malignant neoplasm of unspecified ovary; C77.8 Secondary and unspecified malignant neoplasm of lymph nodes of multiple regions; R22.40 Localized swelling, mass and lump, unspecified lower limb; G62.0 Drug-induced polyneuropathy; M79.671 Pain in right foot; M79.672 Pain in left foot; L84 Corns and callosities; T45.1X5A Adverse effect of antineoplastic and immunosuppressive drugs, initial encounter; X58.XXXA Exposure to other specified factors, initial encounter | CPT/HCPCS: 99202 ==

== ENCOUNTER 2024-10-25 | Outpatient (REF) | payer OTHER, SELFPAY ==
--- NOTE | ~2024-10-25 | US_ITS ---
Examination: Ultrasound extremity nonvascular limited right TECHNIQUE: Grayscale and color Doppler imaging was performed in the plantar region of the right foot, comparison images were obtained on the left. INDICATION: Golf ball size mass along the plantar fascia, soft to palpation COMPARISON: Same day x-ray FINDINGS: In the region of palpable abnormality, there is iso- to hypoechoic somewhat rectangular area measuring 3.8 x 0.3 x 1.1 cm (AP by cc by transverse). On color Doppler, there is minimal internal blood flow. It appears deep to subcutaneous soft tissues and superficial to musculature. US/US Extremity Nonvas Limited RT IMPRESSION: Nonspecific thickening/mass in the plantar right foot. Consider MRI of the hindfoot without contrast for further characterization. Electronically signed by: Chin Bangura MD 10/25/2024 02:28 PM EDT
--- NOTE | ~2024-10-25 | XR_ITS ---
Exam: Three-view bilateral feet TECHNIQUE: AP, oblique, lateral view, bilateral feet x-rays INDICATION: Right foot pain COMPARISON: Left foot March 25, 2017 and right foot December 01, 2016 FINDINGS: Right foot: There is mild hallux valgus deformity. There is asymmetric narrowing of the first metametatarsophalangeal joint and marginal osteophytes which have increased since the prior. There are moderate-sized calcaneal enthesophytes at the plantar and Achilles attachment. Left foot: There is hallux valgus deformity with small marginal osteophytes involving the metatarsophalangeal joint. There is a circumscribed lucency involving the dorsal neck of the first metatarsal with overhanging margins, new since the prior. There is soft tissue swelling medially. There is a bipartite medial sesamoid. There are calcaneal enthesophytes at the Achilles and plantar fascial attachments. XR/XR Foot Ottoniel 3V IMPRESSION: Right foot demonstrates valgus deformity and [id number] first MTP joint osteoarthritis. Left foot demonstrates a new circumscribed erosion with overhanging margins involving the dorsal medial neck of the first metatarsal raising question of gout. Left foot also demonstrates hallux valgus deformity with mild osteoarthritis. Electronically signed by: Chin Bangura MD 10/25/2024 02:22 PM EDT
--- OUTSIDE RECORDS SUMMARY | 2024-11-10 08:41 | XMS_ITS | Clinical Summary ---
Author Organization [facility] [place] [facility] Address [address] [place] [address] [place] [address] Phone Care Team Providers Care Shoder Filler Name Role Phone Rush Guerrero MD Primary Care Provider [phone] Allergies No known active allergies Medications amLODIPine [...] Care Team (Late st Contact Info) Description 11/16/2024 Orders Only [facility] [address] [place] [address] Alex Dickinson MD [address] [address] Stage 3a chronic kidney disease (HCC); Hypertension 11/17/2024 1:00 PM EDT Office Visit [facility] [address] [place] [address] Alex Dickinson MD [address] [address] Health Maintenance Due Date Last Done Comments Breast Cancer Screening 1968 Hepatitis B Vaccine (1 of 3 - 19+ 3-dose series) 06/15 Pneumococcal Vaccine: 50+ Years (1 of 2 - PCV) 988 Colorectal Cancer Screening: Annual FOBT 2017 Colorectal Cancer Screening: Colonoscopy 2017 Colorectal Cancer Screening: Sigmoidoscopy 2017 Influenza Vaccine (#1) 2024 Procedures Procedure Name Priority Date/Time Associated Diagnosis Comments EXT RESULT ENTRY Routine 10/18/2024 from Last 3 Months Results * (ABNORMAL) EXT RESULT ENTRY (10/18/2024) WBC 5.1 3.3 - 10.0 10*3/ML Red Blood Cell Count 3.64 Hemoglobin 11.4(A) 12.0 - 16.0 Hematocrit 33.8(A) 36.0 - 46.0 Platelets 161 150 - 399 10*3/UL MCV 93.0 82.0 - 108.0 Neutrophils Absolute 2.80 1.30 - 8.30 10*3/UL Lymphocytes Absolute 1.90 1.40 - 2.90 10*3/UL Monocytes Absolute 0.40 0.20 - 0.80 10*3/UL Eosinophils Absolute 0.10(A) 0.20 - 0.70 10*3/UL Sodium 137 137 - 147 Potassium 4.0 3.4 - 5.5 Chloride 102.0 99.0 - 108.0 Carbon Dioxide 18 mmol/L Glucose 110 60 - 200 BUN 34(A) 4 - 21 mg/dL Creatinine 1.26(A) 0.50 - 1.10 mg/dL Total Protein 6.7 6.4 - 8.2 G/DL BUN/Creatinine Ratio 27 Albumin 4.3 3.5 - 5.0 g/dL Calcium 10.1 8.7 - 10.7 mg/dL Phosphorus, Serum 4.6 eGFR Non-Afr Paraguayan 50 Magnesium 1.5(A) 1.6 - 2.4 10/18/2024 us Historical Provider LAB BLOOD ORDERABLES Tesha l Result from Last 3 Months Insurance [facility] Medicaid Care Teams Shoder Filler Relationship Specialty Start Date End Date Rush Guerrero MD [address] [place], [place] PCP - General Internal Medicine 12/10/23
--- OUTSIDE RECORDS SUMMARY | 2024-11-10 08:41 | XMS_ITS | Patient Health Record ---
Author Organization [facility] Address [address] [place] [address] Care Team Providers Care Clothes Model Name Role Phone Cesar (RETIRED) Rush DE LA ROSA Primary Care Provide r Leif Ríos Unavailable [phone] Reason For Referral No Information Social History Tobacco Use: Social History Observation Description Date Details (start date - stop date) Never Smoker NA - NA Tobacco Use/Smoking Question Answer Notes Patient is a nonsmoker Alcohol Screen Question Answer Notes Did you have a drink contain ing alcohol in the past year? Yes How often did you have a dri nk containing alcohol in the past year? Never (0 point) How many drinks did you have on a typical day when you were drinking in the past year? 1 or 2 drinks (0 point) How often did you have 6 or more drinks on one occasion in the past year? Never (0 point) Points 0 Interpretation Negative Section Notes: Nonsmoker; no sig alcohol Problems Problem Type SNOMED Code ICD Code Onset Dates Problem Status W/U Status Risk Notes Problem [id number] Encounter for screening for malignant neoplasm of colon (Z12.11) Active confirmed Problem [id number] Pre-procedural examination (Z01.818) Active confirmed Plan Of Treatment Future Test Test Name Order Date COLONOSCOPY 03/09/2019 Insurance Providers Payer Name Payer Address Payer Phone Subscriber Number Group Number Insured Name Patient Relationship to Insured Coverage Start Date Coverage End Date [facility] [employer] Plan [address] [address] [place], [place] [id number] BLUE DAI Self - patient is the insured MEDICAID OF [facility] [address] [place] [address] [phone] [id number] BLUE DAI Self - patient is the insured Medical (General) History Medical History History ICD Code Denies [place],DM,CVA,Lung disease,renal dise ase Iron def. anemia due to heavy menses--ame sosa occasional Iron Surgical History Surgery Date(Month/Year) x 3 Right Knee meniscus 2018
== END 2024-10-25 00:01 | disposition home or self-care (01) ==
LOC: HO.US
PROVIDERS: PCP Physician Assistant; Visit Provider Physician Assistant
DX: R22.41 Localized swelling, mass and lump, right lower limb (principal); M79.671 Pain in right foot
CPT/HCPCS: 73620; 73630; 76882

== ENCOUNTER → 2024-10-25 13:47 | Outpatient (BNV) | payer OTHER, SELFPAY | PROVIDERS: PCP Physician Assistant; Visit Provider Radiology Diagnostic Radiology | DX: M72.2 Plantar fascial fibromatosis (principal); M19.071 Primary osteoarthritis, right ankle and foot; M21.071 Valgus deformity, not elsewhere classified, right ankle; M20.12 Hallux valgus (acquired), left foot | CPT/HCPCS: 73620; 76882 ==

== ENCOUNTER 2024-11-03 06:48 | Outpatient (REF) | payer OTHER, SELFPAY ==
[2024-11-03 10:07] LABS: MANUAL DIFF FLAG NO
[2024-11-03 10:14] LABS: Hematocrit 34.4 % (37.0-47.0); Hemoglobin 11.4 g/dl (12.0-16.0); Imm Gran Abs Auto 0.01 X10*3/uL (0.00-0.03); Imm Gran Pct Auto 0.2 % (0.0-0.4); Lymphocytes Absolute Auto 1.8 X10*3/uL (1.2-4.9); Mean Corpuscular HGB Conc 33.1 g/dl (31.0-35.0); Mean Corpuscular Hemoglobin 30.7 pg (27.0-33.0); Mean Corpuscular Volume 92.7 fL (80.0-98.0); NRBC Abs Auto 0.000 X10*3/uL (0.0-0.012); NRBC Pct Auto 0.0 /100WBC (0.0-0.2); Platelet Count 164 X10*3/uL (160-400); Red Blood Count 3.71 X10*6/uL (4.20-5.50); White Blood Count 4.8 X10*3/uL (4.8-10.8)
[2024-11-03 10:45] LABS: Alanine Aminotransferase 21 U/L (0-31); Albumin Level 4.5 g/dL (3.5-5.0); Alkaline Phosphatase 82 U/L (39-117); Anion Gap 15 (12-20); Aspartate Amino Transferase 28 U/L (5-31); Blood Urea Nitrogen 32 mg/dL (9-16); Calcium 9.7 mg/dL (8.4-10.2); Carbon Dioxide 24 mmol/L (22-29); Chloride 102 mmol/L (96-108); Cholesterol 217 mg/dL (<200); Estimated Glomerular Filt Rate 36; HDL Cholesterol 29 mg/dL (>40); Potassium 4.5 mmol/L (3.3-5.1); Sodium 136 mmol/L (135-145); Total Protein 7.6 g/dL (6.5-8.0); Triglycerides 759 mg/dL (<150); Uric Acid 10.4 mg/dL (2.4-5.7)
[2024-11-03 10:53] LABS: Hemoglobin A1C 95.2563 umol/L; Total Hemoglobin (HGBA1C) 3020.0469 umol/L
[2024-11-03 12:13] LABS: Free T4 (Free Thyroxine) 0.83 ng/dL (0.71-1.85)
[2024-11-10 11:21] LABS: eGFR (Cystatin C) 45 (L)
== END 2024-11-03 06:49 | disposition home or self-care (01) ==
LOC: HO.HMGCLDS 06:48
PROVIDERS: PCP Physician Assistant; Referring Provider Internal Medicine; Visit Provider Physician Assistant
DX: Z13.1 Encounter for screening for diabetes mellitus (principal); I12.9 Hypertensive chronic kidney disease with stage 1 through stage 4 chronic kidney disease, or unspecified chronic kidney disease; N18.31 Chronic kidney disease, stage 3a; E78.5 Hyperlipidemia, unspecified; M79.672 Pain in left foot
CPT/HCPCS: 36415; 80048; 80061; 80076; 82610; 83010; 83036; 83615; 84439; 84443; 84550; 85025

== ENCOUNTER 2024-12-02 09:03 | Outpatient (REF) | payer OTHER, SELFPAY ==
--- NOTE | ~2024-12-02 | MR_ITS ---
CLINICAL HISTORY: R22.41 - Localized swelling, mass and lump, right lower limb --- Additional Notes or Special Instructions: thickening mass plantar surface w pain MR right foot without gadolinium Comparison: 10/25/2024 Findings: No acute fracture or pathologic bone lesion. There are changes of osteoarthritis in the great toe metatarsophalangeal joint with small joint effusion. There is fluid overlying the otherwise intact extensor tendon in the little toe at the level of the metatarsophalangeal joint. Correlate for tenosynovitis. There is a plantar surface homogeneous fat containing 1.1 x 0.5 cm mass, possible lipoma in the area with the overlying skin marker. Intact regional tendinous structures. Intact visualized portions of plantar fascia. IMPRESSION: 1. Great toe metatarsophalangeal joint osteoarthritis with joint effusion. 2. Little toe extensor sheath fluid, possible tenosynovitis. Clinical follow-up recommended. 3. Possible incidental plantar surface lipoma corresponding to the patient's lump. Clinical follow-up recommended. This document has been electronically signed by: Patrick Lama MD on 12/03/2024 08:42:58
--- OUTSIDE RECORDS SUMMARY | 2024-12-02 09:21 | XMS_ITS | Patient Health Record ---
Author Organization [facility] Address [address] [place] [address] Care Team Providers Care Mechanical Oxidizer Name Role Phone Cesar (RETIRED) Rush DE LA ROSA Primary Care Provide r Leif Ríos Unavailable [phone] Reason For Referral No Information Social History [...] Problem Status W/U Status Risk Notes Problem [id number] Encounter for screening for malignant neoplasm of colon (Z12.11) Active confirmed Problem [id number] Pre-procedural examination (Z01.818) Active confirmed Plan Of Treatment Future Test Test Name Order Date COLONOSCOPY 03/09/2019 Insurance Providers Payer Name Payer Address Payer Phone Subscriber Number Group Number Insured Name Patient Relationship to Insured Coverage Start Date Coverage End Date [facility] [employer] Plan [address] [address] [place], [place] [id number] BLUE DAI Self - patient is the insured MEDICAID OF [facility] [address] [place] [address] [id number] BLUE DAI Self - patient is the insured Medical (General) History Medical History History ICD Code Denies [place],DM,CVA,Lung disease,renal dise ase Iron def. anemia due to heavy menses--ame sosa occasional Iron Surgical History Surgery Date(Month/Year) x 3 Right Knee meniscus 2018
--- OUTSIDE RECORDS SUMMARY | 2024-12-02 09:21 | XMS_ITS | Clinical Summary ---
Author Organization [facility] Address [address] [place] [address] [place] [address] Phone Care Team Providers Care Mobile Ui Developer Name Role Phone Enedina Hercules Primary Care Provider [phone] Allergies No known active allergies Medications prochlorperazi ne (COMPAZINE) 10 MG tablet Take 10 mg by mouth if needed for nausea 4 Active spironolactone (ALDACTONE) 25 MG tablet Take 25 mg by mouth in the morning and 25 mg in the evening. 4 Active carvedilol (COREG) 25 MG tablet Take 1 tablet (25 mg total) by mouth in the morning and 1 tablet (25 mg total) in the evening. Take with meals. 180 tablet 3 4 12/17/19 25 Active chlorthalidone 25 MG tablet Take 1 tablet (25 mg total) by mouth 1 (one) time each day 30 tablet 11 5 11/18/19 26 Active amLODIPine (NORVASC) 10 MG tablet Take 10 mg by mouth 4 11/18/19 25 Discontinued hydroCHLOROthi azide (HYDRODIURIL) 50 MG tablet Take 1 tablet (50 mg total) by mouth in the morning and 1 tablet (50 mg total) in the evening. 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 Hypertensive disorder 05/09/2024 Malignant neoplasm of unspecified ovary 05/09/19 25 Nausea 05/09/2024 Severe obesity 05/09/2024 Encounters Date Type Department Care Team Description 11/17/2024 1:00 PM EDT [facility] [address] [place] [address] Alex Dickinson MD Stage 3a chronic kidney disease (HCC) (Primary Dx); Hypertension 11/17/2024 Office Communication [facility] [address] [place] [id number] Alex Dickinson MD 11/16/2024 Orders Only [facility] [address] [place] [address] Alex Dickinson MD Stage 3a chronic kidney disease (HCC); Hypertension from Last 3 Months Social History Tobacco Use Types Packs/Day Years [...] Sign Reading Time Taken Comments Blood Pressure 108/70 11/17/2024 1:31 PM EDT Pulse 60 11/17/2024 1:31 PM EDT Temperature - - Respiratory Rate - - Oxygen Saturation 95% 11/17/2024 1:31 PM EDT Inhaled Oxygen Concentration - - Weight 98.1 kg (216 lb 3.2 oz) 11/17/2024 1:31 P M EDT Height 160 cm (5' 3 ) 05/19/2024 1:53 PM EST Body Mass Index 38.3 05/19/2024 1:53 PM EST Plan of Treatment Upcoming Encounters Date Type Department Care Team (Late st Contact Info) Description 01/12/2025 2:45 PM EDT Office Visit [facility] [address] [place] [phone] Alex Dickinson MD [address] [facility] [address] [place] [address] Health Maintenance Due Date Last Done Comments Breast Cancer Screening 1968 Hepatitis B Vaccine (1 of 3 - 19+ 3-dose series) 06/15 Pneumococcal Vaccine: 50+ Years (1 of 2 - PCV) 988 Colorectal Cancer Screening: Annual FOBT 2017 Colorectal Cancer Screening: Colonoscopy 2017 Colorectal Cancer Screening: Sigmoidoscopy 2017 Influenza Vaccine (#1) 2024 Procedures Procedure Name Priority Date/Time Associated Diagnosis Comments CYSTATIN C WITH EGFR Routine 11/03/2024 10:08 AM EDT Stage 3a chronic kidney disease (HCC) Hypertension EXT RESULT ENTRY Routine 10/18/2024 from Last 3 Months Results * Cystatin C w/GFR (11/03/2024 10:08 AM EDT) Cystatin C 1.45 (L) See order comments Comment: Reference Range: 0.52-1.17 mg/L THIS TEST PERFORMED AT: [facility] [place] [id number] [place] [address] [phone] TABLEMAN: NGOC RIVERS MD, PHD eGFR by Cystatin C 45 (L) See order comments Comment: Reference Range: >=60 mL/min/1.73mE2 THIS TEST PERFORMED AT: [facility] [address] [place] [address] [phone] TABLEMAN: NGOC RIVERS MD, PHD 11/03/2024 10:0 8 AM EDT 11/03/2024 10:08 AM EDT Alex Dickinson MD LAB BLOOD ORDERABLES Final Result [place] See order comments [place] [address] * (ABNORMAL) EXT RESULT ENTRY (10/18/2024) WBC [...] 10.7 mg/dL Phosphorus, Serum 4.6 eGFR Non-Afr Jordanian 50 Magnesium 1.5(A) 1.6 - 2.4 10/18/2024 us Historical Provider LAB BLOOD ORDERABLES Tesha l Result from Last 3 Months Insurance [facility] Medicaid Care Teams Mobile Ui Developer Relationship Specialty Start Date End Date Enedina Hercules [address] [place] [address] PCP - General 11/17/24
--- OUTSIDE RECORDS SUMMARY | 2024-12-02 09:21 | XMS_ITS | Clinical Summary ---
Author Organization [facility] Address [address] [place] [address] [address] [place] [address] Care Team Providers Care It Lead Name Role Phone Unavailable Primary Care Provider [...] 1968 FIT 1968 FOBT 1968 Sigmoidoscopy 1968 Disability Screening 1968 Alcohol/Substance Use Screening 1980 Tobacco Screening [...] 2023-2 5 season) 2023 Influenza Vaccine (#1) 2024 RSV Patients and Pa tients Aged 60 [...]
== END 2024-12-02 09:04 | disposition home or self-care (01) ==
LOC: HO.MRI 09:03
PROVIDERS: PCP Physician Assistant; Visit Provider Physician Assistant
DX: R22.41 Localized swelling, mass and lump, right lower limb (principal)
CPT/HCPCS: 73718

== ENCOUNTER → 2024-12-02 09:10 | Outpatient (BNV) | payer OTHER, SELFPAY | PROVIDERS: PCP Physician Assistant; Visit Provider Specialist | DX: R22.41 Localized swelling, mass and lump, right lower limb (principal); M19.071 Primary osteoarthritis, right ankle and foot | CPT/HCPCS: 73718 ==

== ENCOUNTER 2025-01-06 10:07 | Outpatient (REF) | payer OTHER, SELFPAY ==
--- NOTE | ~2025-01-06 | US_ITS ---
EXAMINATION: US RETROPERITONEAL LIMITED (RENAL ONLY) CLINICAL INFORMATION: Stage III chronic kidney disease.. COMPARISON: No prior ultrasound. Correlation made with CT abdomen and pelvis 11/08/2021. TECHNIQUE: Real-time imaging of the kidneys. FINDINGS: RIGHT KIDNEY: 10.6 x 4.7 x 5.8 cm (SAG x AP x TRV). The kidney is normal in size, contour, and echogenicity. Renal cortical thickness is normal. No calculi or focal parenchymal lesions. No hydronephrosis. LEFT KIDNEY: 11.4 x 4.8 x 3.9 cm (SAG x AP x TRV). The kidney is normal in size, contour, and echogenicity. Renal cortical thickness is normal. No calculi or focal parenchymal lesions. No hydronephrosis. US/US renal BI IMPRESSION: Normal-appearing kidneys on ultrasound. Electronically signed by: Alexandru Tucker MD 01/06/2025 10:57 AM EDT
--- OUTSIDE RECORDS SUMMARY | 2025-01-06 10:40 | XMS_ITS | Encounter Summary ---
Author Organization [employer] Address [address] [place] [address] [place] [address] Care Team Providers Care [employer] Principal Name Role Phone Unavailable Primary Care Provider Unavailabl e Encounter Details Date Type Department Care Team (Latest Contact Info) Description 06/30/2018 Abstract [facility] CONVERSIONS Dental, Provider, DDS Social History [...]
--- OUTSIDE RECORDS SUMMARY | 2025-01-06 10:40 | XMS_ITS | Clinical Summary ---
Author Organization [address] [place] [address] Address [address] [place] [address] Phone Care Team Providers Care Toe Stripper Name Role Phone Enedina Hay Primary Care Provider [phone] Social History Tobacco Use Types Packs/Day Years Used Date Smoking Tobacco: Never Assessed Comments Unknown Sex and Gender Information Value Date Recorded Sex Assigned at Not on file Legal Sex Female 8:34 AM EDT Gender Identity Not on file Sexual Orientation Not on file Plan of Treatment Upcoming Encounters Date Type Department Care Team ([facility] Contact Info) Description 02/16/2025 8:15 AM EDT Consult Orthopedic Surgery - [place] [address] [address] Luis Calvert, JOANNA [address] [address] Health Maintenance Due Date Last Done Comments Breast Cancer Screening 1970 DTaP,Tdap,and Td Vaccines (1 - Tdap) 1987 Hepatitis B Vaccines (1 of 3 - 19+ 3-dose series) 1987 Cervical Cancer Screening: P ap Smear 1989 Pneumococcal Vaccine: 50+ Ye ars (1 of 1 - PCV) 2018 Zoster Vaccines (1 of 2) 2018 Depression Screening 04/20/2024 Colorectal Cancer Screening: Colonoscopy 11/11/2024 HIV Screening 11/11/2024 Hepatitis C Screening 11/11/2024 Social Influencers of Health Screening 11/11/2024 COVID-19 Vaccine (1 - 2023-2 5 season) 2024 Influenza Vaccine (#1) 2024 RSV Immunization Adult Patie nts (1 - 1-dose 75+ series) 2043 HIB [...] on patient's age to complete this topic MMR Vaccines Aged Out No longer eligi ble based on patient's age to complete this topic Meningococcal ACWY Vaccine Aged Out N o longer eligible based on patient's age to complete this topic Meningococcal B Vaccine Aged Out No l onger eligible based on patient's age to complete this topic RSV Immunization Patients Un maurilio 20 months Aged Out No longer eligible b ased on patient's age to complete this topic Varicella Vaccines Aged Out No longer eligible based on patient's age to complete this topic Insurance MEDICAID - [place] [facility] Care Teams Toe Stripper Relationship Specialty Start Date End Date Enedina Hay PA [address] [place] [address] PCP - General Physician Event Security Officer 11/10/24
--- OUTSIDE RECORDS SUMMARY | 2025-01-06 10:40 | XMS_ITS | Clinical Summary ---
Author Organization [employer] Address [address] [place] [address] 7 [place] [address] Care Team Providers Care Food Products Sales Representative Name Role Phone Unavailable Primary Care Provider [...] COVID-19 Vaccine ( - 2023-2 5 season) 2024 Influenza Vaccine (#1) 2024 RSV Patients and [...]
== END 2025-01-06 10:08 | disposition home or self-care (01) ==
LOC: HO.US 10:07
PROVIDERS: PCP Physician Assistant; Visit Provider Internal Medicine
DX: N18.31 Chronic kidney disease, stage 3a (principal)
CPT/HCPCS: 76775

== ENCOUNTER → 2025-01-06 10:22 | Outpatient (BNV) | payer OTHER, SELFPAY | PROVIDERS: PCP Physician Assistant; Visit Provider Radiology Diagnostic Radiology | DX: N18.30 Chronic kidney disease, stage 3 unspecified (principal) | CPT/HCPCS: 76775 ==

== ENCOUNTER 2025-01-17 12:07 | Outpatient (REF) | payer OTHER, SELFPAY ==
--- OUTSIDE RECORDS SUMMARY | 2025-01-12 14:45 | XMS_ITS | Encounter Summary ---
Author Organization [facility] Address [address] [address] Phone Care Team Providers Care Signal Worker Name Role Phone Enedina Hercules Primary Care Provider [phone] Reason for Visit * Reason Comments Stage 3a chronic kidney disease Encounter Details Date Type Department Care Team ([facility] st Contact Info) Description 01/12/2025 2:45 PM EDT [facility] [address] [address] Alex Dickinson MD [address] [address] Stage 3a chronic kidney disease (HCC) (Primary Dx); Hypertension Social History Tobacco Use Types Packs/Day Years Used Date Smoking Tobacco: Never Smokeless Tobacco: Never Alcohol Use Standard Drinks/Week Comments Yes 0 (1 standard drink = 0.6 oz pur e alcohol) socially 1-2 times per year Comments Unknown Sex and Gender Information Value Date Recorded Sex Assigned at Not on file Legal Sex Female 7:47 PM EDT Gender Identity Not on file Sexual Orientation Not on file documented as of this encounter Last Filed Vital Signs Vital Sign Reading Time Taken Comments Blood Pressure 110/80 01/12/2025 1:53 PM EDT Pulse 71 01/12/2025 1:53 PM EDT Temperature - - Respiratory Rate - - Oxygen Saturation 94% 01/12/2025 1:53 PM EDT Inhaled Oxygen Concentration - - Weight 98 kg (216 lb) 01/12/2025 1:53 PM EDT Height - - Body Mass Index 38.26 05/19/2024 1:53 PM EST documented in this encounter Progress Notes * Alex Dickinson MD - 01/12/2025 2:45 PM EDT Images from the original note were not included. Patient Name: Maryann Alvarez, Female Date of : 1970, 54 y.o. Date: 01/12/2025 History of Present Illness Maryann Alvarez is a 54 y.o. 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 - h/o Palmar redness due to doxorubicin- now resolved she had elevation of cr 1.2 in june that subsequently resolved in the next few months 2023 she had a trend up of cr again starting that has persisted around 1.2 Today - High-grade ovarian cancer, kwig[place]-sensitive recurrent, currently on chemotherapy. 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 Respiratory: Negative for cough and shortness of breath. Cardiovascular: Negative for chest pain, palpitations and leg swelling. Gastrointestinal: Negative for abdominal pain, nausea and vomiting. Genitourinary: Negative for dysuria, frequency, hematuria and urgency. Medication List Current Outpatient Medications Medication Sig Dispense Refill carvedilol (COREG) 25 MG tablet Take 1 tablet (25 mg total) by mouth in the morning and 1 tablet (25 mg total) in the evening. Take with meals. 180 tablet 3 chlorthalidone 25 MG tablet Take 1 tablet (25 mg total) by mouth 1 (one) time each day 30 tablet 11 prochlorperazine (COMPAZINE) 10 MG tablet Take 10 mg by mouth if needed for nausea spironolactone (ALDACTONE) 25 MG tablet Take 25 mg by mouth in the morning and 25 mg in the evening. No current facility-administered medications for this visit. Allergy List No Known Allergies Physical Exam BP 110/80 (BP Location: Left upper arm, Patient Position: Sitting, BP Cuff Size: Adult long) Pulse 71 Wt 216 lb (98 kg) SpO2 94% BMI 38.26 kg/m?? Vitals reviewed. Constitutional: She is oriented to person, place, and time. She appears well- developed. No distress. Cardiovascular: Normal rate, regular rhythm and normal heart sounds. She exhibits no edema. Pulmonary/Chest: Effort normal and breath sounds normal. No respiratory distress. Abdominal: Soft. There is no abdominal tenderness. Musculoskeletal: Normal range of motion. Neurological: She is alert and oriented to person, place, and time. Skin: Skin is warm and dry. Labs Chemistry Lab Units 12/20/24 0848 10/18/24 0000 05/10/24 0746 04/19/24 0000 SODIUM -- 137 138 138 POTASSIUM -- 4.0 4.4 4.4 CO2 mmol/L -- 18 23 22 BUN mg/dL -- 34* 21 18 CREATININE mg/dL -- 1.26* 1.21* 1.28* CHLORIDE -- 102.0 100 99.0 ALBUMIN g/dL 4.4 4.3 4.4 4.4 EGFRNAFR -- 50 -- 49 EGFR mL/min/1.73 -- -- 53* -- HEMOGLOBIN -- 11.4* 11.8 11.6* HEMATOCRIT -- 33.8* 34.7 34.4* PLATELETS AUTO 10*3/UL -- 161 174 173 Bone Mineral Lab Units 10/18/24 0000 05/10/24 0746 04/19/24 0000 CALCIUM mg/dL 10.1 9.3 9.2 PHOSPHORUS 4.6 2.8* -- PTH pg/mL -- 116* -- VIT D 25 HYDROXY ng/mL -- 21.2* -- MAGNESIUM 1.5* 2.1 -- Urine Lab Units 05/10/24 0746 PROT/CREAT RATIO UR mg/g creat 145 ALB MG/G CREAT UR mg/g creat 62* Iron Studies Lab Units 05/10/24 0746 FERRITIN ng/mL 768* TIBC ug/dL 302 IRON SATURATION % 19 Assessment & Plan 1. Stage 3a chronic kidney disease (HCC) 2. 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 With discontinuation of offending agents, anemia and thrombocytopenia improved as seen here, however kidney injury may persist, Differential diagnosis would be ATN / Di-TMA from platin agents- however worsening htn, anemia and thrombocytopenia is consistent with bevacizumab contributing the major role in the Di- TMA Pt had a trend towards lowering of potassium, phos - ? Mild fanconi and bicarb( ? Mild RTA) - can be associated with carboplatin - however a minor role if this were to be a multifactorial causation from both chemo agents. - Serum creatinine: stable around 1.2-1.4 mg/dL - Urinalysis: bland sediment, no significant RBCs, no significant protein - LDH: within normal limits - Haptoglobin: within normal limits - eGFR: preserved The persistent creatinine 1.2-1.4 mg/dL with bland urine and preserved eGFR in a patient on bevacizumab is most consistent with VEGF-inhibitor toxicity--primarily hypertension-mediated kidney injury;renal-limited TMA remains possible but is less supported today because there???s no hemolysis and no proteinuria. Niraparib( PARP inhibitor) is strongly associated with thrombocytopenia and anemia and likely explains the severe cytopenias in 2022. Tribal agents (including carboplatin) can cause drug-induced TMA and proximal tubular dysfunction(hypomagnesemia, hypokalemia, RTA/Fanconi-like picture), but this is less common than with cisplatin and usually occurs with more overt MADAY/proteinuria/MAHA. Plan - Will continue to monitor renal function, cbc, ldh, haptoglobulin, and proteinuria - Continue the current medication regimen, which includes carvedilol, Chlorthalidone and spironolactone - Check blood pressures at home - Benefits of discontinuing avastin to be weighed against the potential loss of control of cancer. - If creatinine rises >=30% from baseline and/or new proteinuria (>0.5 g/day) appears, or if platelets fall with schistocytes/LDH ?/haptoglobin ?, obtain directed work-up for TMA; kidney biopsycan confirm renal-limited TMA and guide oncology decisions about continuing VEGF blockade. As a precaution against renal toxicity, isotonic saline infusion and ensuring normal mg/ mg supplementation recommended prior to administering carboplatin. Orders Placed This Encounter Haptoglobin Lactate dehydrogenase C3 Complement C4 Complement APTT Urinalysis with microscopic Protein, Total, Random Urine w/Creatinine (Protein/Creat Ratio) Urine Albumin / Creatinine Ratio Return in about 3 months (around 04/13/2025). Alex Dickinson MD documented in this encounter Plan of Treatment Upcoming Encounters Date Type Department Care Team (Late st Contact Info) Description 05/04/2025 2:30 PM EST Office [facility] [address] [place] [address] Alex Dickinson MD [address] [facility] [address] [place] [address] Scheduled Orders Name Type Priority Associated Diagnoses Orde r Schedule Haptoglobin Lab Routine Stage 3a chronic kidney disease (HCC) Hypertension Expected: 04/13/2025 (Approximate), Expires: 02/11/2026 Lactate dehydrogenase Lab Routine Stage 3a chronic kidney disease (HCC) Hypertension Expected: 04/13/2025 (Approximate), Expires: 02/11/2026 C3 Complement Lab Routine Stage 3a chronic kidney disease (HCC) Hypertension Expected: 04/13/2025 (Approximate), Expires: 02/11/2026 C4 Complement Lab Routine Stage 3a chronic kidney disease (HCC) Hypertension Expected: 04/13/2025 (Approximate), Expires: 02/11/2026 APTT Lab Routine Stage 3a chronic kidney disease (HCC) Hypertension Expected: 04/13/2025 (Approximate), Expires: 02/11/2026 Urinalysis with microscopic Lab Routine Stage 3a chronic kidney disease (HCC) Hypertension Expected: 04/13/2025 (Approximate), Expires: 02/11/2026 Protein, Total, Random Urine w/Creatinine (Protein/Creat Ratio) Lab Routine Stage 3a chronic kidney disease (HCC) Hypertension Expected: 04/13/2025 (Approximate), Expires: 02/11/2026 Urine Albumin / Creatinine Ratio Lab Routine Stage 3a chronic kidney disease (HCC) Hypertension Expected: 04/13/2025 (Approximate), Expires: 02/11/2026 documented as of this encounter Visit Diagnoses Diagnosis Stage 3a chronic kidney disease (HCC)- Primary Hypertension documented in this encounter Care Teams Signal Worker Relationship Specialty Start Date End Date Enedina Hercules [address] [place] [address] PCP - General 11/17/24 documented as of this encounter
--- OUTSIDE RECORDS SUMMARY | 2025-01-17 13:16 | XMS_ITS | Clinical Summary ---
Author Organization [facility] Address [address] [place] [address] [place] [address] Phone Care Team Providers Care Dry Kiln Burner Name Role Phone Enedina Hercules Primary Care Provider [phone] Allergies No known active allergies Medications prochlorperazin e (COMPAZINE) 10 MG tablet Take [...] Take with meals. 180 tablet 3 12/17/2023 Active chlorthalidone 25 MG tablet Take 1 tablet (25 mg total) by mouth 1 (one) time each day 30 tablet 11 11/17/2024 Active Active Problems Problem Noted Date Diagnosed Date Acral erythema 05/09/2024 Anemia 05/09/2024 Anemia caused by antineoplastic agent 05/09/2024 Carcinomatosis 05/09/2024 Hypertensive disorder 05/09/2024 Malignant neoplasm of unspecified ovary 05/09/19 Nausea 05/09/2024 Severe obesity 05/09/2024 Encounters Date Type Department Care Team Description 01/12/2025 2:45 PM EDT Office [facility] [address] [place] [address] Alex Dickinson MD Stage 3a chronic kidney disease (HCC) (Primary Dx); Hypertension 12/29/2024 Office Communication [facility] [address] [place] [address] [address] [place] [address] Alex Dickinson MD 11/17/2024 1:00 PM EDT Office Visit [facility] [address] [facility] [place] [address] Alex Dickinson MD Stage 3a chronic kidney disease (HCC) (Primary Dx); Hypertension 11/17/2024 Office Communication [facility] [address] [place] [address] Alex Dickinson MD 11/16/2024 Orders Only [facility] [address] [place] [address] Alex Dickinson MD Stage 3a chronic kidney [...] (216 lb) 01/12/2025 1:53 PM EDT Height 160 cm (5' 3 ) 05/19/2024 1:53 PM EST Body Mass Index 38.26 05/19/2024 1:53 PM EST Plan of Treatment Upcoming Encounters Date Type Department Care Team (Late Contact Info) Description 05/04/2025 2:30 PM EST Office [facility] [address] [place] [address] Alex Dickinson MD [address] [facility] [address] [place] [address] Health Maintenance Due Date Last Done [...] Diagnosis Comments CYSTATIN C WITH EGFR Routine 12/20/2024 8:48 AM EDT HEPATIC FUNCTION PANEL Routine 8:48 AM EDT Stage 3a chronic kidney disease (HCC) Hypertension LACTATE DEHYDROGENASE Routine 12/20/2024 8:48 AM EDT Stage 3a chronic kidney disease (HCC) Hypertension HAPTOGLOBIN Routine 12/20/2024 8:48 AM EDT Stage 3a chronic kidney disease (HCC) Hypertension CYSTATIN C WITH EGFR Routine 11/03/2024 10:08 AM EDT Stage 3a chronic kidney disease (HCC) Hypertension EXT RESULT ENTRY Routine 10/18/2024 from Last 3 Months Results * (ABNORMAL) Cystatin C w/GFR (12/20/2024 8:48 AM EDT) Only the most recent of2 resultswithin the time period is included. Cystatin C 1.24(H) 0.67 - 1.14 mg/L [facility] e[facility] by Cystatin C 55(L) >59 mL/min/1.7 3 [facility] 12/20/2024 8:48 AM EDT 12/20/2024 us Alex Dickinson MD LAB BLOOD ORDERABLES Final Result [facility] [place] [address] * Lactate dehydrogenase (12/20/2024 8:48 AM EDT) LDH 145 119 - 226 IU/L [facility] Blood specimen (specimen) Venous blood / Unknown 12/20/2024 8:48 AM EDT 12/20/2024 us Alex Dickinson MD LAB BLOOD ORDERABLES Final Result Performing Organization Address City/[facility]/ZIP Co de Phone Number [facility] [place] [address] [place] [address] * Haptoglobin (12/20/2024 8:48 AM EDT) Haptoglobin 185 33 - 346 mg/dL [facility] Blood specimen (specimen) Venous blood / Unknown 12/20/2024 8:48 AM EDT 12/20/2024 us Alex Dickinson MD LAB BLOOD ORDERABLES Final Result [facility] [place] [address] [place] [address] * Hepatic Function Panel (12/20/2024 8:48 AM EDT) Total Protein 6.8 6.0 - 8.5 g/dL [facility] Albumin 4.4 3.8 - 4.9 g/dL [facility] Total Bilirubin 0.3 0.0 - 1.2 mg/dL [facility] Bilirubin, Direct 0.12 0.00 - 0.40 mg/dL [facility] Alkaline Phosphatase 88 44 - 121 IU/L [facility] Comment: Effective January 02, 2025 Alkaline Phosphatase reference interval will be changing to: Age Male Female 0 - 5 days 47 - 127 47 - 127 6 - 10 days 29 - 242 29 - 242 11 - 20 days 109 - 357 109 - 357 21 - 30 days 94 - 494 94 - 494 1 - 2 months 149 - 539 149 - 539 3 - 6 months 131 - 452 131 - 452 7 - 11 months 117 - 401 117 - 401 12 months - 6 years 158 - 369 158 - 369 7 - 12 years 150 - 409 150 - 409 13 years 156 - 435 78 - 227 14 years 114 - 375 64 - 161 15 years 88 - 279 56 - 134 16 years 74 - 207 51 - 121 17 years 63 - 161 47 - 113 18 - 20 years 51 - 125 42 - 106 21 - 50 years 47 - 123 41 - 116 51 - 80 years 49 - 135 51 - 125 >80 years 48 - 129 48 - 129 AST (SGOT) 17 0 - 40 IU/L [facility] ALT (SGPT) 12 0 - 32 IU/L [facility] Blood specimen (specimen) Venous blood / Unknown 12/20/2024 8:48 AM EDT 12/20/2024 us Alex Dickinson MD LAB BLOOD ORDERABLES Final Result [facility] [address] [place] [address] * (ABNORMAL) EXT RESULT ENTRY (10/18/2024) WBC [...] 10.7 mg/dL Phosphorus, Serum 4.6 eGFR Non-Afr Lithuanian 50 Magnesium 1.5(A) 1.6 - 2.4 10/18/2024 [facility] Provider LAB BLOOD ORDERABLES Tesha l Result from Last [address] [place] [address] Medicaid Care Teams Dry Kiln Burner Relationship Specialty Start Date End Date Enedina Hercules [address] [place] [address] PCP - General 11/17/24
--- OUTSIDE RECORDS SUMMARY | 2025-01-17 13:16 | XMS_ITS | Clinical Summary ---
Author Organization [address] [place] [address] Address [address] [place] [address] Phone Care Team Providers Care Ambulance Attendant Name Role Phone Enedina Hay Primary Care Provider [phone] Social History Tobacco Use Types Packs/Day Years Used Date Smoking Tobacco: Never Assessed Comments Unknown Sex and Gender Information Value Date Recorded Sex Assigned at Not on file Legal Sex Female 8:34 AM EDT Gender Identity Not on file Sexual Orientation Not on file Plan of Treatment Upcoming Encounters Date Type Department Care Team ([facility] Contact Info) Description 02/16/2025 8:15 AM EDT Consult Orthopedic Surgery - [place] [address] [address] Luis Calvert, JOANNA [address] [address] Health Maintenance Due Date Last Done Comments [...] complete this topic Insurance MEDICAID - [place] [facility] Care Teams Ambulance Attendant Relationship Specialty Start Date End Date Enedina Hay PA [address] [place] [address] PCP - General Physician Student Success Counselor 11/10/24
--- OUTSIDE RECORDS SUMMARY | 2025-01-17 13:16 | XMS_ITS | Clinical Summary ---
Author Organization [employer] Address [address] [place] [address] 7 [place] [address] Care Team Providers Care Stove Cleaner Name Role Phone Unavailable Primary Care Provider [...]
--- OUTSIDE RECORDS SUMMARY | 2025-01-17 13:16 | XMS_ITS | Encounter Summary ---
Author Organization [employer] Address [address] [place] [address] [place] [address] Care Team Providers Care Assembler Adjuster Name Role Phone Unavailable Primary Care Provider Unavailabl e Encounter Details Date Type Department Care Team (Latest Contact Info) Description 06/30/2018 Abstract [facility] CONVERSIONS Dental, Provider, DDS Social History [...]
--- OUTSIDE RECORDS SUMMARY | 2025-01-17 13:16 | XMS_ITS | Patient Health Record ---
Author Organization [facility] Address [address] [place] [address] Care Team Providers Care Duty Manager Name Role Phone Cesar (RETIRED) Rush DE LA ROSA Primary Care Provide r Leif Ríos Unavailable [phone] Reason For Referral No Information Social History [...] Problem Status W/U Status Risk Notes Problem [id number] Encounter for screening for malignant neoplasm of colon (Z12.11) Active confirmed Problem [id number] Pre-procedural examination (Z01.818) Active confirmed Plan Of Treatment Future Test Test Name Order Date COLONOSCOPY 03/09/2019 Insurance Providers Payer Name Payer Address Payer Phone Subscriber Number Group Number Insured Name Patient Relationship to Insured Coverage Start Date Coverage End Date [facility] [employer] Plan [address] [address] [place], [place] [id number] BLUE DAI Self - patient is the insured [place] OF [place] [facility] [address] [place] [address] [id number] BLUE DAI Self - patient is the insured Medical (General) History Medical History History ICD Code Denies [place],DM,CVA,Lung disease,renal dise ase Iron def. anemia due to heavy menses--ame sosa occasional Iron Surgical History Surgery Date(Month/Year) x 3 Right Knee meniscus 2018
[2025-01-17 14:23] LABS: Alanine Aminotransferase 19 U/L (0-31); Albumin Level 4.3 g/dL (3.5-5.0); Alkaline Phosphatase 75 U/L (39-117); Anion Gap 10 (12-20); Aspartate Amino Transferase 28 U/L (5-31); Blood Urea Nitrogen 17 mg/dL (9-16); Calcium 8.9 mg/dL (8.4-10.2); Carbon Dioxide 26 mmol/L (22-29); Chloride 108 mmol/L (96-108); Cholesterol 142 mg/dL (<200); Estimated Glomerular Filt Rate 47; HDL Cholesterol 26 mg/dL (>40); Potassium 4.3 mmol/L (3.3-5.1); Sodium 140 mmol/L (135-145); Total Protein 7.0 g/dL (6.5-8.0); Triglycerides 247 mg/dL (<150)
== END 2025-01-17 12:08 | disposition home or self-care (01) ==
LOC: HO.HMGCLDS 12:07
PROVIDERS: PCP Physician Assistant; Visit Provider Physician Assistant
DX: I12.9 Hypertensive chronic kidney disease with stage 1 through stage 4 chronic kidney disease, or unspecified chronic kidney disease (principal); N18.30 Chronic kidney disease, stage 3 unspecified; E78.5 Hyperlipidemia, unspecified
CPT/HCPCS: 36415; 80048; 80061; 80076